=== PATIENT | female | born 1985 | race Caucasian/White ===

== ENCOUNTER 2022-06-16 13:41 | Outpatient (CLI) | payer OTHER ==
--- NOTE | 2022-06-18 09:14 | Ultrasound Report ---
PROCEDURE: OB Detailed Eval INDICATIONS: SUPERVISION OF OUTSIDE/PRIOR DATING DATA: Last menstrual period (LMP): 01/27/2022. LMP-based estimated date of delivery (GERALD): 11/03/2022. First dating scan (date and location): 06/16/2022. Dr. Magaña. Estimated date of delivery (GERALD) from first dating scan: 11/03/2022. The below data below was generated using the ultrasound GERALD of 11/03/2022 TECHNIQUE: Real-time scanning was performed of the fetus, with image documentation and biometric measurements. COMPARISON: None. FINDINGS: General: A single living intrauterine gestation is present. Presentation: Breech Placenta: Placental position is posterior, without convincing previa. Amniotic fluid index: 14 cm, normal for gestational age. Largest pocket 4.8 cm. heart rate: 150 beats per minute. Maternal cervical canal: 3.6 cm long; normal length is 2.5 cm or more. No funneling. biometrics: Biparietal diameter: 4.6 cm, 20 weeks 0 days Head circumference: 17.5 cm, 20 weeks 0 days Abdominal circumference: 16.7 cm, 21 weeks 5 days Femur length: 3.2 cm, 20 weeks 0 days Estimated gestational age from initial scan: 20 weeks 2 days Composite gestational age from present scan: 20 weeks 2 days Estimated weight and percentile: 381 g, 83rd percentile. Measurement variability in biometric dating: +/- 10 days from 12-20 weeks gestation, +/- 2 weeks from 20-30 weeks gestation, +/- 3 weeks at 30 weeks gestation or later. Anatomic survey: Neuro: Ventricles are normal at less than 10 mm. Cisterna magna is normal at 3-11 mm. Cerebellum i s normal in size and morphology. Nuchal skin fold: Normal at less than 6 mm between 14 and 20 weeks gestational age. Face: Not well seen. Spine: No evidence for spina bifida. Heart: Outflow tracts well seen. Four-chamber view is normal. Diaphragm: Diaphragm is intact. Stomach: Left-sided stomach is present. Kidneys: No hydronephrosis. Normal is less than 5 mm in 2nd trimester, less than 7 mm in 3rd trimester. Cord: 3 vessel cord has orthotopic insertion. Bladder: Normal in size. Extremities: All 4 extremities are visualized. IMPRESSION: 1. Perez living intrauterine at 20 weeks 2 days based on today's ultrasound. Fetus is i n the 83rd percentile for weight. 2. Normal placenta and amniotic fluid. 3. face and cardiac outflow tracts are not well seen. Otherwise normal anatomic survey. R ecommend follow-up OB ultrasound. Reviewed by: Isidro Singh MD on 06/18/2022 9:12 AM PST Approved by: Isidro Singh MD on 06/18/2022 9:12 AM PST Station ID: [id number]
== END 2022-06-16 13:42 | disposition home or self-care (01) ==
LOC: DI 13:41
PROVIDERS: ATTEND Nurse Practitioner Obstetrics & Gynecology
DX: Z34.02 Encounter for supervision of normal first pregnancy, second trimester (principal); Z36.89 Encounter for other specified antenatal screening

== ENCOUNTER 2022-06-25 10:41 | Outpatient (CLI) | payer OTHER ==
--- NOTE | 2022-06-25 11:59 | Ultrasound Report ---
PROCEDURE: OB F/U or Repeat INDICATIONS: SUPERVISION OF OUTSIDE/PRIOR DATING DATA: Last menstrual period (LMP): 01/27/2022. LMP-based estimated date of delivery (GERALD): 11/03/2022. First dating scan (date and location): 06/16/2021. Estimated date of delivery (GERALD) from first dating scan: 11/03/2022. TECHNIQUE: Real-time scanning was performed of the fetus, with image documentation COMPARISON: 06/16/2022 FINDINGS: General: A single living intrauterine gestation is present. Presentation: Variable Placenta: Placental position is posterior, without previa. Amniotic fluid index: 19.3 cm heart rate: 152 beats per minute. frontal facial view normal limits. However, no adequate profile view or nose/lips view could be obtained. LVOT views within normal limits. RVOT was still not well seen. IMPRESSION: Intrauterine with GERALD of 11/03/2022. RVOT view, profile, nose/lips view not wel l seen. LVOT view within normal limits. Reviewed by: Bishnu Sutton MD on 06/25/2022 11:57 AM PST Approved by: Bishnu Sutton MD on 06/25/2022 11:57 AM PST Station ID: [id number]
== END 2022-06-25 10:42 | disposition home or self-care (01) ==
LOC: DI 10:41
PROVIDERS: ATTEND Nurse Practitioner Obstetrics & Gynecology
DX: Z34.00 Encounter for supervision of normal first pregnancy, unspecified trimester (principal); Z36.89 Encounter for other specified antenatal screening

== ENCOUNTER 2022-08-12 11:04 | Outpatient (CLI) | payer OTHER ==
[2022-08-12 12:20] LABS: HCT - HEMATOCRIT 38.4 % (37.0-47.0); HGB - HEMOGLOBIN 12.6 g/dL (12.0-16.0); MEAN CORPUSCULAR HEMOGLOBIN 28.6 pg (27.0-31.0); MEAN CORPUSCULAR HGB CONC 32.8 g/dL (32.0-36.0); MEAN CORPUSCULAR VOLUME 87.1 fL (81.0-99.0); MEAN PLATELET VOLUME 9.3 fL (7.9-10.8); RED BLOOD COUNT 4.41 10^6/uL (4.20-5.40); RED CELL DISTRIBUTION WIDTH 12.8 % (12.0-15.0); WHITE BLOOD COUNT 8.5 x10^3/uL (4.8-10.8)
== END 2022-08-12 11:05 | disposition home or self-care (01) ==
LOC: LAB 11:04
PROVIDERS: ATTEND Nurse Practitioner Obstetrics & Gynecology
DX: Z36.9 Encounter for antenatal screening, unspecified (principal)
CPT/HCPCS: 36415; 82950; 85027

== ENCOUNTER 2022-09-14 13:06 | Outpatient (CLI) | payer OTHER ==
[2022-09-14 13:17] LABS: BASOPHILS % (AUTO) 0.1 %; EOSINOPHILS # (AUTO) 0.1 10^3/uL (0.0-0.7); EOSINOPHILS % (AUTO) 1.7 %; HCT - HEMATOCRIT 35.9 % (37.0-47.0); LYMPHOCYTES # (AUTO) 1.6 10^3/uL (1.5-3.5); LYMPHOCYTES % (AUTO) 19.8 %; MEAN CORPUSCULAR HEMOGLOBIN 28.4 pg (27.0-31.0); MEAN CORPUSCULAR HGB CONC 33.4 g/dL (32.0-36.0); MEAN CORPUSCULAR VOLUME 85.1 fL (81.0-99.0); MEAN PLATELET VOLUME 9.4 fL (7.9-10.8); MONOCYTES # (AUTO) 0.7 10^3/uL (0.0-1.0); MONOCYTES % (AUTO) 8.6 %; NEUTROPHILS # (AUTO) 5.7 10^3/uL (1.5-6.6); NEUTROPHILS % (AUTO) 69.1 %; PLT - PLATELET COUNT 269 10^3/uL (130-450); RED BLOOD COUNT 4.22 10^6/uL (4.20-5.40); RED CELL DISTRIBUTION WIDTH 12.9 % (12.0-15.0); WHITE BLOOD COUNT 8.3 x10^3/uL (4.8-10.8)
[2022-09-14 13:27] LABS: ALBUMIN 3.1 g/dL (3.2-5.5); ALBUMIN/GLOBULIN RATIO 0.9 (1.0-2.2); BILIRUBIN,TOTAL 0.3 mg/dL (0.2-1.0); CALCIUM 9.3 mg/dL (8.5-10.3); CREATININE 0.6 mg/dL (0.4-1.0); POTASSIUM 3.5 mmol/L (3.5-5.0); TOTAL PROTEIN 6.5 g/dL (6.7-8.2)
[2022-09-14 13:28] LABS: CREATININE,URINE 92.7 mg/dL; PROTEIN/CREATININE RATIO,URINE 0.2 (<=0.2)
== END 2022-09-14 13:07 | disposition home or self-care (01) ==
LOC: LAB 13:06
PROVIDERS: ATTEND Nurse Practitioner Obstetrics & Gynecology
DX: R03.0 Elevated blood-pressure reading, without diagnosis of hypertension (principal)
CPT/HCPCS: 36415; 80053; 82570; 84156; 85025

== ENCOUNTER 2022-09-28 11:36 | Outpatient (CLI) | payer OTHER ==
--- NOTE | 2022-09-28 13:54 | Ultrasound Report ---
PROCEDURE: OB F/U or Repeat INDICATIONS: UTERINE SIZE DATE DISCREPENCY OUTSIDE/PRIOR DATING DATA: Last menstrual period (LMP): 01/27/2022. LMP-based estimated date of delivery (GERALD): 11/03/2022 First dating scan (date and location): 06/16/2022. Estimated date of delivery (GERALD) from first dating scan: 11/03/2022 TECHNIQUE: Real-time scanning was performed of the fetus, with image documentation and biometric measurements. COMPARISON: 06/25/2022, 06/16/2022 FINDINGS: General: A single living intrauterine gestation is present. Presentation: Vertex Placenta: Placental position is posterior, without previa. Amniotic fluid index: 14.9 cm, 55th percentile for gestational age. heart rate: 137 beats per minute. Maternal cervical canal: 3.5 cm long; normal length is 2.5 cm or more. biometrics: Biparietal diameter: 8.76 cm, 35 weeks and 3 days Head circumference: 32.0 cm, 36 weeks and 1 day Abdominal circumference: 30.82 cm, 34 weeks and 5 days Femur length: 6.65 cm, 34 weeks and 2 days Estimated gestational age from initial scan: 34 weeks and 6 days Composite gestational age from present scan: 35 weeks and 1 day Estimated weight and percentile: 2523 g, 45th percentile IMPRESSION: Growth and fluid within normal limits. Intrauterine living with a working GERALD of 11/03/2022. EFW is at the 45th percentile. Previously noted anatomy not assessed on this study. Reviewed by: Bishnu Sutton MD on 09/28/2022 1:53 PM PDT Approved by: Bishnu Sutton MD on 09/28/2022 1:53 PM PDT Station ID: [id number]
== END 2022-09-28 11:37 | disposition home or self-care (01) ==
LOC: DI 11:36
PROVIDERS: ATTEND Nurse Practitioner Obstetrics & Gynecology
DX: O26.843 Uterine size-date discrepancy, third trimester (principal); Z3A.35 35 weeks gestation of pregnancy

== ENCOUNTER 2022-10-01 13:51 | Outpatient (CLI) | payer OTHER ==
[2022-10-01 14:02] LABS: BASOPHILS % (AUTO) 0.2 %; EOSINOPHILS # (AUTO) 0.1 10^3/uL (0.0-0.7); EOSINOPHILS % (AUTO) 1.5 %; HCT - HEMATOCRIT 36.4 % (37.0-47.0); HGB - HEMOGLOBIN 11.9 g/dL (12.0-16.0); LYMPHOCYTES # (AUTO) 1.7 10^3/uL (1.5-3.5); LYMPHOCYTES % (AUTO) 19.1 %; MEAN CORPUSCULAR HEMOGLOBIN 27.7 pg (27.0-31.0); MEAN CORPUSCULAR HGB CONC 32.7 g/dL (32.0-36.0); MEAN CORPUSCULAR VOLUME 84.7 fL (81.0-99.0); MEAN PLATELET VOLUME 9.6 fL (7.9-10.8); MONOCYTES # (AUTO) 0.7 10^3/uL (0.0-1.0); MONOCYTES % (AUTO) 7.3 %; NEUTROPHILS # (AUTO) 6.4 10^3/uL (1.5-6.6); NEUTROPHILS % (AUTO) 71.1 %; PLT - PLATELET COUNT 252 10^3/uL (130-450); RED CELL DISTRIBUTION WIDTH 13.2 % (12.0-15.0); WHITE BLOOD COUNT 9.1 x10^3/uL (4.8-10.8)
[2022-10-01 14:13] LABS: MICROALBUM/CREATININE RATIO,UR 14.3 ug/mg (<30.0); MICROALBUMIN,URINE 0.7 mg/dL (0-300.0)
== END 2022-10-01 13:52 | disposition home or self-care (01) ==
LOC: LAB 13:51
PROVIDERS: ATTEND Nurse Practitioner Obstetrics & Gynecology
DX: R03.0 Elevated blood-pressure reading, without diagnosis of hypertension (principal)
CPT/HCPCS: 36415; 82043; 82570; 85025

== ENCOUNTER 2022-10-05 10:30 | Outpatient (CLI) | payer OTHER ==
[2022-10-05 10:59] VITALS: BP 122/86
--- NOTE | 2022-10-05 17:51 | PROCEDURE REPORT ---
- HPI Diagnosis/Indication for NST: Gestational Hypertension Current EDU 11/02/22 Gestation 36 Weeks and 0 Days 1 Para 0 Vital Signs Temperature 36.7 C 10/05/22 10:43 Heart Rate 99 10/05/22 10:43 Respiratory Rate 18 10/05/22 10:43 Blood Pressure 125/96 H 10/05/22 10:43 Temperature 36.7 C 10/05/22 10:43 Heart Rate 99 10/05/22 10:43 Respiratory Rate 18 10/05/22 10:43 Blood Pressure 122/86 H 10/05/22 10:59 O2 Saturation If not protocol: Oxygen Flow, liters/minute - NST Procedure NST Procedure Start Date 10/05/22 Start Time 10:36 Stop Time 11:07 Vibroacoustic Stimulation Used No Patient States Movement Yes - Results and Plan Findings/Impression: NST reactive. FHR baseline 130s, moderate variability, + accels, no decels No contractions appreciated via tocometry. FINAL DIAGNOSIS: Gestational hypertension, third trimester Obesity complicating third trimester
== END 2022-10-05 11:20 | disposition home or self-care (01) ==
LOC: WFO 10:30 → FBP 10:31 → WFO 11:20
PROVIDERS: ATTEND Nurse Practitioner Obstetrics & Gynecology
DX: O13.3 Gestational [pregnancy-induced] hypertension without significant proteinuria, third trimester (principal); O99.213 Obesity complicating pregnancy, third trimester; Z3A.36 36 weeks gestation of pregnancy
CPT/HCPCS: 36415; 59025; 80053

== ENCOUNTER 2022-10-05 11:17 | Outpatient (CLI) | payer OTHER ==
[2022-10-05 11:53] LABS: ALBUMIN/GLOBULIN RATIO 0.9 (1.0-2.2); BILIRUBIN,TOTAL 0.5 mg/dL (0.2-1.0); CALCIUM 9.8 mg/dL (8.5-10.3); CREATININE 0.7 mg/dL (0.4-1.0); POTASSIUM 3.6 mmol/L (3.5-5.0); TOTAL PROTEIN 6.5 g/dL (6.7-8.2)
== END 2022-10-05 11:18 | disposition home or self-care (01) ==
LOC: LAB 11:17
PROVIDERS: ATTEND Nurse Practitioner Obstetrics & Gynecology
DX: R03.0 Elevated blood-pressure reading, without diagnosis of hypertension (principal)
CPT/HCPCS: 36415; 80053

== ENCOUNTER 2022-10-20 07:25 | Inpatient (IN) | payer OTHER ==
[2022-10-20] MEDS: SODIUM CHLORIDE FLUSH 0.9% 10 ML SYRINGE IVP SCH (08:05)
[2022-10-20] MEDS ORDERED: lidocaine 1% 20 ML MDV ID PRN (08:37)
[2022-10-20] MEDS ORDERED: METHYLERGONOVINE 0.2 MG/ML VIAL IM PRN (08:37)
[2022-10-20] MEDS ORDERED: OXYTOCIN/SODIUM CHLORIDE 500 ML IV PRN (08:37)
[2022-10-20] MEDS ORDERED: OXYTOCIN 10 UNIT/ML VIAL IM PRN (08:37)
[2022-10-20] MEDS ORDERED: ONDANSETRON 4 MG/2 ML VIAL IVP PRN (08:37)
[2022-10-20] MEDS ORDERED: miSOPROStoL 100 MCG TABLET BC SCH (08:37)
[2022-10-20] MEDS ORDERED: SODIUM CHLORIDE FLUSH 0.9% 10 ML SYRINGE IVP PRN (08:37)
[2022-10-20] MEDS ORDERED: TRANEXAMIC ACID IN NACL 1,000 MG/100 ML BAG IV PRN (08:37)
[2022-10-20] MEDS ORDERED: CARBOPROST TROMETHAMINE 250 MCG/ML AMP IM PRN (08:37)
[2022-10-20] MEDS ORDERED: miSOPROStoL 200 MCG TABLET BC PRN (08:37)
[2022-10-20 09:00] LABS: BASOPHILS % (AUTO) 0.2 %; EOSINOPHILS # (AUTO) 0.1 10^3/uL (0.0-0.7); EOSINOPHILS % (AUTO) 1.5 %; HCT - HEMATOCRIT 33.8 % (37.0-47.0); HGB - HEMOGLOBIN 11.1 g/dL (12.0-16.0); LYMPHOCYTES # (AUTO) 1.7 10^3/uL (1.5-3.5); LYMPHOCYTES % (AUTO) 18.8 %; MEAN CORPUSCULAR HEMOGLOBIN 27.4 pg (27.0-31.0); MEAN CORPUSCULAR HGB CONC 32.8 g/dL (32.0-36.0); MEAN CORPUSCULAR VOLUME 83.5 fL (81.0-99.0); MEAN PLATELET VOLUME 10.5 fL (7.9-10.8); MONOCYTES # (AUTO) 0.8 10^3/uL (0.0-1.0); MONOCYTES % (AUTO) 8.8 %; NEUTROPHILS # (AUTO) 6.2 10^3/uL (1.5-6.6); NEUTROPHILS % (AUTO) 70.1 %; PLT - PLATELET COUNT 265 10^3/uL (130-450); RED BLOOD COUNT 4.05 10^6/uL (4.20-5.40); RED CELL DISTRIBUTION WIDTH 13.6 % (12.0-15.0); WHITE BLOOD COUNT 8.8 x10^3/uL (4.8-10.8)
[2022-10-20] MEDS ORDERED: LABETALOL 100 MG TABLET PO SCH ×2 (09:00→18:00)
--- OUTSIDE RECORDS SUMMARY | 2022-10-20 09:04 | EXTERNAL MEDICAL SUMMARY RPT | Continuity of Care Document ---
Author Name Unknown Address [address] [place] [address] Phone Organization [facility] Address [address] [place] [address] Phone Care Team Providers Care Station Helper Name Role Phone Unavailable Unavailable Unavailable Loyda, Provider Unavailable Unavailable Medications date description facility 2022-08-12 00:00 thyroid (pork) [facility] 2022-09-14 00:00 thyroid (pork) [facility] 2022-10-01 00:00 thyroid (pork) [facility] 2022-10-05 00:00 thyroid (pork) [facility] 2022-08-12 00:00 bupropion hcl [facility] 2022-09-14 00:00 bupropion hcl [facility] 2022-10-01 00:00 bupropion hcl [facility] 2022-10-05 00:00 bupropion hcl [facility] 2022-08-12 00:00 thyroid (pork) [facility] 2022-09-14 00:00 thyroid (pork) [facility] 2022-10-01 00:00 thyroid (pork) [facility] 2022-10-05 00:00 thyroid (pork) [facility] 2022-08-12 00:00 thyroid (pork) [facility] 2022-09-14 00:00 thyroid (pork) [facility] 2022-10-01 00:00 thyroid (pork) [facility] 2022-10-05 00:00 thyroid (pork) [facility] 2022-08-12 00:00 thyroid (pork) [facility] 2022-09-14 00:00 thyroid (pork) [facility] 2022-10-01 00:00 thyroid (pork) [facility] 2022-10-05 00:00 thyroid (pork) [facility] 2022-08-12 00:00 bupropion hcl [facility] 2022-09-14 00:00 bupropion hcl [facility] 2022-10-01 00:00 bupropion hcl [facility] 2022-10-05 00:00 bupropion hcl [facility] 2022-08-12 00:00 bupropion hcl [facility] 2022-09-14 00:00 bupropion hcl [facility] 2022-10-01 00:00 bupropion hcl [facility] 2022-10-05 00:00 bupropion hcl [facility] 2022-08-12 00:00 bupropion hcl [facility] 2022-09-14 00:00 bupropion hcl [facility] 2022-10-01 00:00 bupropion hcl [facility] 2022-10-05 00:00 bupropion hcl [facility] Results/Labs test date author facility value unit interpretation Result panel 1 (unknown) (no date) (unknown) [facility] (no value) (units unknown) (unknown) Result panel 2 (unknown) (no date) (unknown) [facility] (no value) (units unknown) (unknown) Result panel 3 (unknown) (no date) (unknown) [facility] (no value) (units unknown) (unknown) Result panel 4 (unknown) (no date) (unknown) [facility] (no value) (units unknown) (unknown) Result panel 5 (unknown) (no date) (unknown) [facility] (no value) (units unknown) (unknown) Result panel 6 (unknown) (no date) (unknown) [facility] (no value) (units unknown) (unknown) Result panel 7 (unknown) (no date) (unknown) [facility] (no value) (units unknown) (unknown) Result panel 8 (unknown) (no date) (unknown) [facility] (no value) (units unknown) (unknown) Result panel 9 (unknown) (no date) (unknown) [facility] (no value) (units unknown) (unknown) Result panel 10 (unknown) (no date) (unknown) [facility] (no value) (units unknown) (unknown) Result panel 11 (unknown) (no date) (unknown) [facility] (no value) (units unknown) (unknown) Result panel 12 (unknown) (no date) (unknown) [facility] (no value) (units unknown) (unknown) Result panel 13 (unknown) (no date) (unknown) [facility] (no value) (units unknown) (unknown) Result panel 14 (unknown) (no date) (unknown) [facility] (no value) (units unknown) (unknown) Result panel 15 (unknown) (no date) (unknown) [facility] (no value) (units unknown) (unknown) Result panel 16 (unknown) (no date) (unknown) [facility] (no value) (units unknown) (unknown) Result panel 17 (unknown) (no date) (unknown) [facility] (no value) (units unknown) (unknown) Result panel 18 (unknown) (no date) (unknown) [facility] (no value) (units unknown) (unknown) Result panel 19 (unknown) (no date) (unknown) [facility] (no value) (units unknown) (unknown) Result panel 20 (unknown) (no date) (unknown) [facility] (no value) (units unknown) (unknown) Result panel 21 (unknown) (no date) (unknown) [facility] (no value) (units unknown) (unknown) Result panel 22 (unknown) (no date) (unknown) [facility] (no value) (units unknown) (unknown) Result panel 23 (unknown) (no date) (unknown) [facility] (no value) (units unknown) (unknown) Result panel 24 (unknown) (no date) (unknown) [facility] (no value) (units unknown) (unknown) Result panel 25 (unknown) (no date) (unknown) [facility] (no value) (units unknown) (unknown) Result panel 26 (unknown) (no date) (unknown) [facility] (no value) (units unknown) (unknown) Result panel 27 (unknown) (no date) (unknown) [facility] (no value) (units unknown) (unknown) Result panel 28 (unknown) (no date) (unknown) [facility] (no value) (units unknown) (unknown) Result panel 29 (unknown) (no date) (unknown) [facility] (no value) (units unknown) (unknown) Result panel 30 (unknown) (no date) (unknown) [facility] (no value) (units unknown) (unknown) Result panel 31 (unknown) (no date) (unknown) [facility] (no value) (units unknown) (unknown) Result panel 32 (unknown) (no date) (unknown) [facility] (no value) (units unknown) (unknown) Result panel 33 (unknown) (no date) (unknown) [facility] (no value) (units unknown) (unknown) Result panel 34 (unknown) (no date) (unknown) [facility] (no value) (units unknown) (unknown) Result panel 35 (unknown) (no date) (unknown) [facility] (no value) (units unknown) (unknown) Result panel 36 (unknown) (no date) (unknown) [facility] (no value) (units unknown) (unknown) Result panel 37 (unknown) (no date) (unknown) [facility] (no value) (units unknown) (unknown) Result panel 38 (unknown) (no date) (unknown) [facility] (no value) (units unknown) (unknown) Result panel 39 (unknown) (no date) (unknown) [facility] (no value) (units unknown) (unknown) Result panel 40 (unknown) (no date) (unknown) [facility] (no value) (units unknown) (unknown) Result panel 41 (unknown) (no date) (unknown) [facility] (no value) (units unknown) (unknown) Result panel 42 (unknown) (no date) (unknown) [facility] (no value) (units unknown) (unknown) Result panel 43 (unknown) (no date) (unknown) [facility] (no value) (units unknown) (unknown) Result panel 44 (unknown) (no date) (unknown) [facility] (no value) (units unknown) (unknown) Result panel 45 (unknown) (no date) (unknown) [facility] (no value) (units unknown) (unknown) Result panel 46 (unknown) (no date) (unknown) [facility] (no value) (units unknown) (unknown) Result panel 47 (unknown) (no date) (unknown) [facility] (no value) (units unknown) (unknown) Result panel 48 (unknown) (no date) (unknown) [facility] (no value) (units unknown) (unknown) Result panel 49 (unknown) (no date) (unknown) [facility] (no value) (units unknown) (unknown) Result panel 50 (unknown) (no date) (unknown) [facility] (no value) (units unknown) (unknown) Result panel 51 (unknown) (no date) (unknown) [facility] (no value) (units unknown) (unknown) Result panel 52 (unknown) (no date) (unknown) [facility] (no value) (units unknown) (unknown) Result panel 53 (unknown) (no date) (unknown) [facility] (no value) (units unknown) (unknown) Result panel 54 (unknown) (no date) (unknown) [facility] (no value) (units unknown) (unknown) Result panel 55 (unknown) (no date) (unknown) [facility] (no value) (units unknown) (unknown) Result panel 56 (unknown) (no date) (unknown) [facility] (no value) (units unknown) (unknown) Result panel 57 (unknown) (no date) (unknown) [facility] (no value) (units unknown) (unknown) Result panel 58 (unknown) (no date) (unknown) [facility] (no value) (units unknown) (unknown) Result panel 59 (unknown) (no date) (unknown) [facility] (no value) (units unknown) (unknown) Result panel 60 (unknown) (no date) (unknown) [facility] (no value) (units unknown) (unknown) Result panel 61 (unknown) (no date) (unknown) [facility] (no value) (units unknown) (unknown) Result panel 62 (unknown) (no date) (unknown) [facility] (no value) (units unknown) (unknown) Result panel 63 (unknown) (no date) (unknown) [facility] (no value) (units unknown) (unknown) Result panel 64 (unknown) (no date) (unknown) [facility] (no value) (units unknown) (unknown) Result panel 65 (unknown) (no date) (unknown) [facility] (no value) (units unknown) (unknown) Result panel 66 (unknown) (no date) (unknown) [facility] (no value) (units unknown) (unknown) Result panel 67 (unknown) (no date) (unknown) [facility] (no value) (units unknown) (unknown) Result panel 68 (unknown) (no date) (unknown) [facility] (no value) (units unknown) (unknown) Result panel 69 (unknown) (no date) (unknown) [facility] (no value) (units unknown) (unknown) Result panel 70 (unknown) (no date) (unknown) [facility] (no value) (units unknown) (unknown) Result panel 71 (unknown) (no date) (unknown) [facility] (no value) (units unknown) (unknown) Result panel 72 (unknown) (no date) (unknown) [facility] (no value) (units unknown) (unknown) Result panel 73 (unknown) (no date) (unknown) [facility] (no value) (units unknown) (unknown) Result panel 74 (unknown) (no date) (unknown) [facility] (no value) (units unknown) (unknown) Result panel 75 (unknown) (no date) (unknown) [facility] (no value) (units unknown) (unknown) Result panel 76 (unknown) (no date) (unknown) [facility] (no value) (units unknown) (unknown) Result panel 77 (unknown) (no date) (unknown) [facility] (no value) (units unknown) (unknown) Result panel 78 (unknown) (no date) (unknown) [facility] (no value) (units unknown) (unknown) Result panel 79 (unknown) (no date) (unknown) [facility] (no value) (units unknown) (unknown) Result panel 80 (unknown) (no date) (unknown) [facility] (no value) (units unknown) (unknown) Result panel 81 (unknown) (no date) (unknown) [facility] (no value) (units unknown) (unknown) Result panel 82 (unknown) (no date) (unknown) [facility] (no value) (units unknown) (unknown) Result panel 83 (unknown) (no date) (unknown) [facility] (no value) (units unknown) (unknown) Result panel 84 (unknown) (no date) (unknown) [facility] (no value) (units unknown) (unknown) Result panel 85 (unknown) (no date) (unknown) [facility] (no value) (units unknown) (unknown) Result panel 86 (unknown) (no date) (unknown) [facility] (no value) (units unknown) (unknown) Result panel 87 (unknown) (no date) (unknown) [facility] (no value) (units unknown) (unknown) Result panel 88 (unknown) (no date) (unknown) [facility] (no value) (units unknown) (unknown) Result panel 89 (unknown) (no date) (unknown) [facility] (no value) (units unknown) (unknown) Result panel 90 (unknown) (no date) (unknown) [facility] (no value) (units unknown) (unknown) Result panel 91 (unknown) (no date) (unknown) [facility] (no value) (units unknown) (unknown) Result panel 92 (unknown) (no date) (unknown) [facility] (no value) (units unknown) (unknown) Result panel 93 (unknown) (no date) (unknown) [facility] (no value) (units unknown) (unknown) Result panel 94 (unknown) (no date) (unknown) [facility] (no value) (units unknown) (unknown) Result panel 95 (unknown) (no date) (unknown) [facility] (no value) (units unknown) (unknown) Result panel 96 (unknown) (no date) (unknown) [facility] (no value) (units unknown) (unknown) Result panel 97 (unknown) (no date) (unknown) [facility] (no value) (units unknown) (unknown) Result panel 98 (unknown) (no date) (unknown) [facility] (no value) (units unknown) (unknown) Result panel 99 (unknown) (no date) (unknown) [facility] (no value) (units unknown) (unknown) Result panel 100 (unknown) (no date) (unknown) [facility] (no value) (units unknown) (unknown) Result panel 101 (unknown) (no date) (unknown) [facility] (no value) (units unknown) (unknown) Result panel 102 (unknown) (no date) (unknown) [facility] (no value) (units unknown) (unknown) Result panel 103 (unknown) (no date) (unknown) [facility] (no value) (units unknown) (unknown) Result panel 104 (unknown) (no date) (unknown) [facility] (no value) (units unknown) (unknown) Result panel 105 (unknown) (no date) (unknown) [facility] (no value) (units unknown) (unknown) Result panel 106 (unknown) (no date) (unknown) [facility] (no value) (units unknown) (unknown) Result panel 107 (unknown) (no date) (unknown) [facility] (no value) (units unknown) (unknown) Result panel 108 (unknown) (no date) (unknown) [facility] (no value) (units unknown) (unknown) Result panel 109 (unknown) (no date) (unknown) [facility] (no value) (units unknown) (unknown) Result panel 110 (unknown) (no date) (unknown) [facility] (no value) (units unknown) (unknown) Result panel 111 (unknown) (no date) (unknown) [facility] (no value) (units unknown) (unknown) Result panel 112 (unknown) (no date) (unknown) [facility] (no value) (units unknown) (unknown) Result panel 113 (unknown) (no date) (unknown) [facility] (no value) (units unknown) (unknown) Result panel 114 (unknown) (no date) (unknown) [facility] (no value) (units unknown) (unknown) Result panel 115 (unknown) (no date) (unknown) [facility] (no value) (units unknown) (unknown) Result panel 116 (unknown) (no date) (unknown) [facility] (no value) (units unknown) (unknown) Result panel 117 (unknown) (no date) (unknown) [facility] (no value) (units unknown) (unknown) Result panel 118 (unknown) (no date) (unknown) [facility] (no value) (units unknown) (unknown) Result panel 119 (unknown) (no date) (unknown) [facility] (no value) (units unknown) (unknown) Result panel 120 (unknown) (no date) (unknown) [facility] (no value) (units unknown) (unknown) Result panel 121 (unknown) (no date) (unknown) [facility] (no value) (units unknown) (unknown) Result panel 122 (unknown) (no date) (unknown) [facility] (no value) (units unknown) (unknown) Result panel 123 (unknown) (no date) (unknown) [facility] (no value) (units unknown) (unknown) Result panel 124 (unknown) (no date) (unknown) [facility] (no value) (units unknown) (unknown) Result panel 125 (unknown) (no date) (unknown) [facility] (no value) (units unknown) (unknown) Result panel 126 (unknown) (no date) (unknown) [facility] (no value) (units unknown) (unknown) Result panel 127 (unknown) (no date) (unknown) [facility] (no value) (units unknown) (unknown) Result panel 128 (unknown) (no date) (unknown) [facility] (no value) (units unknown) (unknown) Result panel 129 (unknown) (no date) (unknown) [facility] (no value) (units unknown) (unknown) Result panel 130 (unknown) (no date) (unknown) [facility] (no value) (units unknown) (unknown) Result panel 131 (unknown) (no date) (unknown) [facility] (no value) (units unknown) (unknown) Result panel 132 (unknown) (no date) (unknown) [facility] (no value) (units unknown) (unknown) Result panel 133 (unknown) (no date) (unknown) [facility] (no value) (units unknown) (unknown) Result panel 134 (unknown) (no date) (unknown) [facility] (no value) (units unknown) (unknown) Result panel 135 (unknown) (no date) (unknown) [facility] (no value) (units unknown) (unknown) Result panel 136 (unknown) (no date) (unknown) [facility] (no value) (units unknown) (unknown) Result panel 137 (unknown) (no date) (unknown) [facility] (no value) (units unknown) (unknown) Result panel 138 (unknown) (no date) (unknown) [facility] (no value) (units unknown) (unknown) Result panel 139 (unknown) (no date) (unknown) [facility] (no value) (units unknown) (unknown) Result panel 140 (unknown) (no date) (unknown) [facility] (no value) (units unknown) (unknown) Result panel 141 (unknown) (no date) (unknown) [facility] (no value) (units unknown) (unknown) Result panel 142 (unknown) (no date) (unknown) [facility] (no value) (units unknown) (unknown) Result panel 143 (unknown) (no date) (unknown) [facility] (no value) (units unknown) (unknown) Result panel 144 (unknown) (no date) (unknown) [facility] (no value) (units unknown) (unknown) Result panel 145 (unknown) (no date) (unknown) [facility] (no value) (units unknown) (unknown) Result panel 146 (unknown) (no date) (unknown) [facility] (no value) (units unknown) (unknown) Result panel 147 (unknown) (no date) (unknown) [facility] (no value) (units unknown) (unknown) Result panel 148 (unknown) (no date) (unknown) [facility] [facility] (no value) (units unknown) (unknown) Result panel 149 (unknown) (no date) (unknown) [facility] value) (units unknown) (unknown) Result panel 150 (unknown) (no date) (unknown) [facility]no value) (units unknown) (unknown) Result panel 151 (unknown) (no date) (unknown) [facility] value) (units unknown) (unknown) Result panel 152 (unknown) (no date) (unknown) [facility] value) (units unknown) (unknown) Result panel 153 (unknown) (no date) (unknown) [facility] value) (units unknown) (unknown) Result panel 154 (unknown) (no date) (unknown) [facility] value) (units unknown) (unknown) Result panel 155 (unknown) (no date) (unknown) [facility] value) (units unknown) (unknown) Result panel 156 (unknown) (no date) (unknown) [facility] value) (units unknown) (unknown) Result panel 157 (unknown) (no date) (unknown) [facility] value) (units unknown) (unknown) Result panel 158 (unknown) (no date) (unknown) [facility] value) (units unknown) (unknown) Result panel 159 (unknown) (no date) (unknown) [facility] value) (units unknown) (unknown) Result panel 160 (unknown) (no date) (unknown) [facility] value) (units unknown) (unknown) Result panel 161 (unknown) (no date) (unknown) [facility] value) (units unknown) (unknown) Result panel 162 (unknown) (no date) (unknown) [facility] value) (units unknown) (unknown) Result panel 163 (unknown) (no date) (unknown) [facility] value) (units unknown) (unknown) Result panel 164 (unknown) (no date) (unknown) [facility] value) (units unknown) (unknown) Result panel 165 (unknown) (no date) (unknown) [facility] value) (units unknown) (unknown) Result panel 166 (unknown) (no date) (unknown) [facility] value) (units unknown) (unknown) Result panel 167 (unknown) (no date) (unknown) [facility] value) (units unknown) (unknown) Result panel 168 (unknown) (no date) (unknown) [facility] value) (units unknown) (unknown) Result panel 169 (unknown) (no date) (unknown) [facility] value) (units unknown) (unknown) Result panel 170 (unknown) (no date) (unknown) [facility] value) (units unknown) (unknown) Result panel 171 (unknown) (no date) (unknown) [facility] value) (units unknown) (unknown) Result panel 172 (unknown) (no date) (unknown) [facility] value) (units unknown) (unknown) Result panel 173 (unknown) (no date) (unknown) [facility] value) (units unknown) (unknown) Result panel 174 (unknown) (no date) (unknown) [facility] value) (units unknown) (unknown) Result panel 175 (unknown) (no date) (unknown) [facility] value) (units unknown) (unknown) Result panel 176 (unknown) (no date) (unknown) [facility] value) (units unknown) (unknown) Result panel 177 (unknown) (no date) (unknown) [facility] value) (units unknown) (unknown) Result panel 178 (unknown) (no date) (unknown) [facility] value) (units unknown) (unknown) Result panel 179 (unknown) (no date) (unknown) [facility]no value) (units unknown) (unknown) Result panel 180 (unknown) (no date) (unknown) [facility] (no value) (units unknown) (unknown) Result panel 181 (unknown) (no date) (unknown) [facility] value) (units unknown) (unknown) Result panel 182 (unknown) (no date) (unknown) [facility]no value) (units unknown) (unknown) Result panel 183 (unknown) (no date) (unknown) [facility] value) (units unknown) (unknown) Result panel 184 (unknown) (no date) (unknown) [facility]no value) (units unknown) (unknown) Result panel 185 (unknown) (no date) (unknown) [facility]no value) (units unknown) (unknown) Result panel 186 (unknown) (no date) (unknown) [facility]no value) (units unknown) (unknown) Result panel 187 (unknown) (no date) (unknown) [facility]no value) (units unknown) (unknown) Result panel 188 (unknown) (no date) (unknown) [facility]no value) (units unknown) (unknown) Result panel 189 (unknown) (no date) (unknown) [facility]no value) (units unknown) (unknown) Result panel 190 (unknown) (no date) (unknown) [facility] value) (units unknown) (unknown) Result panel 191 (unknown) (no date) (unknown) [facility]no value) (units unknown) (unknown) Result panel 192 (unknown) (no date) (unknown) [facility]no value) (units unknown) (unknown) Result panel 193 (unknown) (no date) (unknown) [facility]no value) (units unknown) (unknown) Result panel 194 (unknown) (no date) (unknown) [facility]no value) (units unknown) (unknown) Result panel 195 (unknown) (no date) (unknown) [facility]no value) (units unknown) (unknown) Result panel 196 (unknown) (no date) (unknown) [facility]no value) (units unknown) (unknown) Result panel 197 (unknown) (no date) (unknown) [facility]no value) (units unknown) (unknown) Result panel 198 (unknown) (no date) (unknown) [facility]no value) (units unknown) (unknown) Result panel 199 (unknown) (no date) (unknown) [facility]no value) (units unknown) (unknown) Result panel 200 (unknown) (no date) (unknown) [facility]no value) (units unknown) (unknown) Result panel 201 (unknown) (no date) (unknown) [facility]no value) (units unknown) (unknown) Result panel 202 (unknown) (no date) (unknown) [facility]no value) (units unknown) (unknown) Result panel 203 (unknown) (no date) (unknown) [facility]no value) (units unknown) (unknown) Result panel 204 (unknown) (no date) (unknown) [facility]no value) (units unknown) (unknown) Result panel 205 (unknown) (no date) (unknown) [facility]no value) (units unknown) (unknown) Result panel 206 (unknown) (no date) (unknown) [facility]no value) (units unknown) (unknown) Result panel 207 (unknown) (no date) (unknown) [facility]no value) (units unknown) (unknown) Result panel 208 (unknown) (no date) (unknown) [facility]no value) (units unknown) (unknown) Result panel 209 (unknown) (no date) (unknown) [facility]no value) (units unknown) (unknown) Result panel 210 (unknown) (no date) (unknown) [facility] (no value) (units unknown) (unknown) Result panel 211 (unknown) (no date) (unknown) [facility]no value) (units unknown) (unknown) Result panel 212 (unknown) (no date) (unknown) [facility]no value) (units unknown) (unknown) Result panel 213 (unknown) (no date) (unknown) [facility]no value) (units unknown) (unknown) Result panel 214 (unknown) (no date) (unknown) [facility] (no value) (units unknown) (unknown) Result panel 215 (unknown) (no date) (unknown) [facility]no value) (units unknown) (unknown) Result panel 216 (unknown) (no date) (unknown) [facility]no value) (units unknown) (unknown) Result panel 217 (unknown) (no date) (unknown) [facility]no value) (units unknown) (unknown) Result panel 218 (unknown) (no date) (unknown) [facility] (no value) (units unknown) (unknown) Result panel 219 (unknown) (no date) (unknown) [facility]no value) (units unknown) (unknown) Result panel 220 (unknown) (no date) (unknown) [facility] (no value) (units unknown) (unknown) Result panel 221 (unknown) (no date) (unknown) [facility]no value) (units unknown) (unknown) Result panel 222 (unknown) (no date) (unknown) [facility]no value) (units unknown) (unknown) Result panel 223 (unknown) (no date) (unknown) [facility]no value) (units unknown) (unknown) Result panel 224 (unknown) (no date) (unknown) [facility] (no value) (units unknown) (unknown) Result panel 225 (unknown) (no date) (unknown) [facility] (no value) (units unknown) (unknown) Result panel 226 (unknown) (no date) (unknown) [facility]no value) (units unknown) (unknown) Result panel 227 (unknown) (no date) (unknown) [facility] (no value) (units unknown) (unknown) Result panel 228 (unknown) (no date) (unknown) [facility] (no value) (units unknown) (unknown) Result panel 229 (unknown) (no date) (unknown) [facility] (no value) (units unknown) (unknown) Result panel 230 (unknown) (no date) (unknown) [facility] (no value) (units unknown) (unknown) Result panel 231 (unknown) (no date) (unknown) [facility] (no value) (units unknown) (unknown) Result panel 232 (unknown) (no date) (unknown) [facility] (no value) (units unknown) (unknown) Result panel 233 (unknown) (no date) (unknown) [facility] (no value) (units unknown) (unknown) Result panel 234 (unknown) (no date) (unknown) [facility] (no value) (units unknown) (unknown) Result panel 235 (unknown) (no date) (unknown) [facility] (no value) (units unknown) (unknown) Result panel 236 (unknown) (no date) (unknown) [facility] (no value) (units unknown) (unknown) Result panel 237 (unknown) (no date) (unknown) [facility] (no value) (units unknown) (unknown) Result panel 238 (unknown) (no date) (unknown) [facility] (no value) (units unknown) (unknown) Result panel 239 (unknown) (no date) (unknown) [facility] (no value) (units unknown) (unknown) Result panel 240 (unknown) (no date) (unknown) [facility] (no value) (units unknown) (unknown) Result panel 241 (unknown) (no date) (unknown) [facility] (no value) (units unknown) (unknown) Result panel 242 (unknown) (no date) (unknown) [facility] (no value) (units unknown) (unknown) Result panel 243 (unknown) (no date) (unknown) [facility] (no value) (units unknown) (unknown) Result panel 244 (unknown) (no date) (unknown) [facility] (no value) (units unknown) (unknown) Result panel 245 (unknown) (no date) (unknown) [facility] (no value) (units unknown) (unknown) Result panel 246 (unknown) (no date) (unknown) [facility] (no value) (units unknown) (unknown) Result panel 247 (unknown) (no date) (unknown) [facility] (no value) (units unknown) (unknown) Result panel 248 (unknown) (no date) (unknown) [facility] (no value) (units unknown) (unknown) Result panel 249 (unknown) (no date) (unknown) [facility] (no value) (units unknown) (unknown) Result panel 250 (unknown) (no date) (unknown) [facility] (no value) (units unknown) (unknown) Result panel 251 (unknown) (no date) (unknown) [facility] (no value) (units unknown) (unknown) Result panel 252 (unknown) (no date) (unknown) [facility] (no value) (units unknown) (unknown) Result panel 253 (unknown) (no date) (unknown) [facility] (no value) (units unknown) (unknown) Result panel 254 (unknown) (no date) (unknown) [facility] (no value) (units unknown) (unknown) Result panel 255 (unknown) (no date) (unknown) [facility] (no value) (units unknown) (unknown) Result panel 256 (unknown) (no date) (unknown) [facility] (no value) (units unknown) (unknown) Result panel 257 (unknown) (no date) (unknown) [facility] (no value) (units unknown) (unknown) Result panel 258 (unknown) (no date) (unknown) [facility] (no value) (units unknown) (unknown) Result panel 259 (unknown) (no date) (unknown) [facility] (no value) (units unknown) (unknown) Result panel 260 (unknown) (no date) (unknown) [facility] (no value) (units unknown) (unknown) Result panel 261 (unknown) (no date) (unknown) [facility] (no value) (units unknown) (unknown) Result panel 262 (unknown) (no date) (unknown) [facility] (no value) (units unknown) (unknown) Result panel 263 (unknown) (no date) (unknown) [facility]no value) (units unknown) (unknown) Result panel 264 (unknown) (no date) (unknown) [facility] (no value) (units unknown) (unknown) Result panel 265 (unknown) (no date) (unknown) [facility]no value) (units unknown) (unknown) Result panel 266 (unknown) (no date) (unknown) [facility]no value) (units unknown) (unknown) Result panel 267 (unknown) (no date) (unknown) [facility]no value) (units unknown) (unknown) Result panel 268 (unknown) (no date) (unknown) [facility]no value) (units unknown) (unknown) Result panel 269 (unknown) (no date) (unknown) [facility]no value) (units unknown) (unknown) Result panel 270 (unknown) (no date) (unknown) [facility]no value) (units unknown) (unknown) Result panel 271 (unknown) (no date) (unknown) [facility] (no value) (units unknown) (unknown) Result panel 272 (unknown) (no date) (unknown) [facility] (no value) (units unknown) (unknown) Result panel 273 (unknown) (no date) (unknown) [facility] (no value) (units unknown) (unknown) Result panel 274 (unknown) (no date) (unknown) [facility] (no value) (units unknown) (unknown) Result panel 275 (unknown) (no date) (unknown) [facility] (no value) (units unknown) (unknown) Result panel 276 (unknown) (no date) (unknown) [facility] (no value) (units unknown) (unknown) Result panel 277 (unknown) (no date) (unknown) [facility] (no value) (units unknown) (unknown) Result panel 278 (unknown) (no date) (unknown) [facility] (no value) (units unknown) (unknown) Result panel 279 (unknown) (no date) (unknown) [facility] (no value) (units unknown) (unknown) Result panel 280 (unknown) (no date) (unknown) [facility] (no value) (units unknown) (unknown) Result panel 281 (unknown) (no date) (unknown) [facility] (no value) (units unknown) (unknown) Result panel 282 (unknown) (no date) (unknown) [facility] (no value) (units unknown) (unknown) Result panel 283 (unknown) (no date) (unknown) [facility] (no value) (units unknown) (unknown) Result panel 284 (unknown) (no date) (unknown) [facility] (no value) (units unknown) (unknown) Result panel 285 (unknown) (no date) (unknown) [facility] (no value) (units unknown) (unknown) Result panel 286 (unknown) (no date) (unknown) [facility] (no value) (units unknown) (unknown) Result panel 287 (unknown) (no date) (unknown) [facility] (no value) (units unknown) (unknown) Result panel 288 (unknown) (no date) (unknown) [facility] (no value) (units unknown) (unknown) Result panel 289 (unknown) (no date) (unknown) [facility] (no value) (units unknown) (unknown) Result panel 290 (unknown) (no date) (unknown) [facility] (no value) (units unknown) (unknown) Result panel 291 (unknown) (no date) (unknown) [facility] (no value) (units unknown) (unknown) Result panel 292 (unknown) (no date) (unknown) [facility] (no value) (units unknown) (unknown) Result panel 293 (unknown) (no date) (unknown) [facility] (no value) (units unknown) (unknown) Result panel 294 (unknown) (no date) (unknown) [facility] (no value) (units unknown) (unknown) Result panel 295 (unknown) (no date) (unknown) [facility] (no value) (units unknown) (unknown) Result panel 296 (unknown) (no date) (unknown) [facility] (no value) (units unknown) (unknown) Result panel 297 (unknown) (no date) (unknown) [facility] (no value) (units unknown) (unknown) Result panel 298 (unknown) (no date) (unknown) [facility]no value) (units unknown) (unknown) Result panel 299 (unknown) (no date) (unknown) [facility]no value) (units unknown) (unknown) Result panel 300 (unknown) (no date) (unknown) [facility] (no value) (units unknown) (unknown) Result panel 301 (unknown) (no date) (unknown) [facility]no value) (units unknown) (unknown) Result panel 302 (unknown) (no date) (unknown) [facility] (no value) (units unknown) (unknown) Result panel 303 (unknown) (no date) (unknown) [facility] (no value) (units unknown) (unknown) Result panel 304 (unknown) (no date) (unknown) [facility] (no value) (units unknown) (unknown) Result panel 305 (unknown) (no date) (unknown) [facility] (no value) (units unknown) (unknown) Result panel 306 (unknown) (no date) (unknown) [facility] (no value) (units unknown) (unknown) Result panel 307 (unknown) (no date) (unknown) [facility] (no value) (units unknown) (unknown) Result panel 308 (unknown) (no date) (unknown) [facility]no value) (units unknown) (unknown) Result panel 309 (unknown) (no date) (unknown) [facility] (no value) (units unknown) (unknown) Result panel 310 (unknown) (no date) (unknown) [facility] (no value) (units unknown) (unknown) Result panel 311 (unknown) (no date) (unknown) [facility] (no value) (units unknown) (unknown) Result panel 312 (unknown) (no date) (unknown) [facility] (no value) (units unknown) (unknown) Result panel 313 (unknown) (no date) (unknown) [facility] (no value) (units unknown) (unknown) Result panel 314 (unknown) (no date) (unknown) [facility] (no value) (units unknown) (unknown) Result panel 315 (unknown) (no date) (unknown) [facility] (no value) (units unknown) (unknown) Result panel 316 (unknown) (no date) (unknown) [facility] (no value) (units unknown) (unknown) Result panel 317 (unknown) (no date) (unknown) [facility] (no value) (units unknown) (unknown) Result panel 318 (unknown) (no date) (unknown) [facility]no value) (units unknown) (unknown) Result panel 319 (unknown) (no date) (unknown) [facility] [place] (no value) (units unknown) (unknown) Result panel 320 (unknown) (no date) (unknown) [facility] [place] (no value) (units unknown) (unknown) Result panel 321 (unknown) (no date) (unknown) [facility] [place] (no value) (units unknown) (unknown) Result panel 322 (unknown) (no date) (unknown) [facility] [place] (no value) (units unknown) (unknown) Result panel 323 (unknown) (no date) (unknown) [facility] [place] (no value) (units unknown) (unknown) Result panel 324 (unknown) (no date) (unknown) [facility] [place] (no value) (units unknown) (unknown) Result panel 325 (unknown) (no date) (unknown) [facility] [place] (no value) (units unknown) (unknown) Result panel 326 (unknown) (no date) (unknown) [facility] [place] (no value) (units unknown) (unknown) Result panel 327 (unknown) (no date) (unknown) [facility] [place] (no value) (units unknown) (unknown) Result panel 328 (unknown) (no date) (unknown) [facility] [place] (no value) (units unknown) (unknown) Result panel 329 (unknown) (no date) (unknown) [facility] [place] (no value) (units unknown) (unknown) Result panel 330 (unknown) (no date) (unknown) [facility] [place] (no value) (units unknown) (unknown) Result panel 331 (unknown) (no date) (unknown) [facility] [place] (no value) (units unknown) (unknown) Result panel 332 (unknown) (no date) (unknown) [facility] [place] (no value) (units unknown) (unknown) Result panel 333 (unknown) (no date) (unknown) [facility] [place] (no value) (units unknown) (unknown) Result panel 334 (unknown) (no date) (unknown) [facility] [place] (no value) (units unknown) (unknown) Result panel 335 (unknown) (no date) (unknown) [facility] [place] (no value) (units unknown) (unknown) Result panel 336 (unknown) (no date) (unknown) [facility] [place] (no value) (units unknown) (unknown) Result panel 337 (unknown) (no date) (unknown) [facility] [place] (no value) (units unknown) (unknown) Result panel 338 (unknown) (no date) (unknown) [facility] [place] (no value) (units unknown) (unknown) Result panel 339 (unknown) (no date) (unknown) [facility] [place] (no value) (units unknown) (unknown) Result panel 340 (unknown) (no date) (unknown) [facility] [place] (no value) (units unknown) (unknown) Result panel 341 (unknown) (no date) (unknown) [facility] [place] (no value) (units unknown) (unknown) Result panel 342 (unknown) (no date) (unknown) [facility] [place] (no value) (units unknown) (unknown) Result panel 343 (unknown) (no date) (unknown) [facility] [place] (no value) (units unknown) (unknown) Result panel 344 (unknown) (no date) (unknown) [facility] [place] (no value) (units unknown) (unknown) Result panel 345 (unknown) (no date) (unknown) [facility] [place] (no value) (units unknown) (unknown) Social History date description facility 2022-08-12 00:00 Unknown if ever smoked [facility] [place] 2022-09-14 00:00 Unknown if ever smoked [facility] [place] 2022-10-01 00:00 Unknown if ever smoked [facility] [place] 2022-10-05 00:00 Unknown if ever smoked [facility] [place]
[2022-10-20 09:07] LABS: ALBUMIN 2.7 g/dL (3.2-5.5); ALBUMIN/GLOBULIN RATIO 0.7 (1.0-2.2); BILIRUBIN,TOTAL 0.4 mg/dL (0.2-1.0); CALCIUM 9.4 mg/dL (8.5-10.3); CREATININE 0.7 mg/dL (0.4-1.0); POTASSIUM 3.2 mmol/L (3.5-5.0); TOTAL PROTEIN 6.4 g/dL (6.7-8.2)
[2022-10-20] MEDS ORDERED: LACTATED RINGERS 1,000 ML ONE (09:14)
[2022-10-20] MEDS: buPROPion XL 150 MG TABLET PO SCH (09:37)
[2022-10-20 09:59] LABS: CREATININE,URINE 48.6 mg/dL; PROTEIN/CREATININE RATIO,URINE 0.1 (<=0.2)
--- NOTE | 2022-10-20 10:10 | HISTORY & PHYSICAL EXAMINATION ---
Admit History - Visit Reason Visit Reason: Other - : 1 Parity: 0 Premature: 0 Ectopic: 0 : 0 Care: positive: [facility] Risk/History: positive: None Complications This : positive: induced HTN Smoking Status: Never smoker - Mother's Labs Mother's Blood Type: positive: B Mother's RH: positive: Negative GBS: positive: Group B Step Negative Rubella Status: positive: Immune Meds/Allgy - Allergies Allergies/Adverse Reactions: Allergies Allergy/AdvReac Type Severity Reaction Status Date / Time No Known Drug Allergies Allergy Verified 10/20/22 08:33 Review of Systems - Constitutional Constitutional: denies: Fatigue, Fever, Chills, Malaise - Eyes Eyes: denies: Blurred vision, Spots in vision, Dipolpia - Cardiovascular Cariovascular: denies: Irregular heart rate, Palpitations, Chest pain, Edema - Respiratory Respiratory: denies: Cough, Wheezing, SOB at rest - Gastrointestinal Gastrointestinal: denies: Constipation, Diarrhea, Nausea, Vomiting - Genitourinary Genitourinary: denies: Dysuria - Integumentary Integumentary: denies: Rash, Pruritis - Neurological Neurological: denies: Headache - Psychiatric Psychiatric: denies: Depression, Anxiety - Hematologic/Lymphatic Hematologic/Lymphatic: denies: Anemia Physical - Abdominal Exam Vital Signs: Temp Pulse Resp BP Pulse Ox O2 Flow Rate 36.7 C 92 18 150/99 H 10/20/22 08:34 10/20/22 08:34 10/20/22 08:34 10/20/22 08:34 Contraction Frequency (min/apart): occasional Contraction Intensity: positive: Mild Uterine Resting Tone: positive: Soft - Monitoring Heart Rate Baseline: 130 Strip Review: positive: Category I - Presentation Presentation: positive: Vertex - Vaginal Exam Membranes: positive: Membranes intact Dilation (in cm): 2 Effacement (%): 70 Station: positive: -3 Cervical Position: positive: Midposition - Speculum Exam Speculum Exam Performed: positive: No Findings: positive: Other Plan for Labor - Plan For Labor I expect patient to be DC'd or transferred within 96 hours.: Yes Plan for Labor: Desire is a 37yo @ 38.1wks gestation by LMP c/w 6wk U/S who presents to [facility] for medical induction of labor secondary to gestational hypertension. She had SVE in the office yesterday which was /-3, midposition, soft and vertex with intact membranes. She denies vaginal bleeding, leakage of fluid or contractions since that time so SVE was deferred today. She has been a patient of [facility] for the duration of her which has been complicated only by her gestational hypertension and advanced maternal age. Gestational hypertension has remained mildly elevated and she has had PIH labs drawn on several occasions and they have all remained WNL. 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 SAB x 0. Last pap 06/2019-WNL, No hx of abnormals. Medical Hx: Anxiety, PCOS, Hypothyroidism Surgical Hx: Deviated septum repair 11/2021, Family Hx: HTN- mother; Thyroid disease- sister; Twins- sister (Clomid) Meds: PNV, Armor thyroid 90mg PO daily; Metformin 1500mg PO daily, Wellbutrin XR 150mg PO daily, PNV, 81mg ASA Allergies: None known Social: , lives with Rebel who works for [employer]. 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 No tobacco, ETOH or recreational drug use. Caffeine intake is minimal. course: B negative, antibody negative Rubella immune, varicella immune Hgb A1C 5.3 Baseline LFTs WNL 1 hour glucola 97 Rhogam 08/13/2022 FAS WNL with the exception of incomplete visualization LVOT and facial profile. Posterior placenta, no previa. Size c/w dating. 3VC. GERARD WNL F/u ultrasound WNL. Growth and GERARD at 35wks WNL. EFW 45%tile. GERARD WNL GBS negative Physical exam: Normocephalic, atraumatic Heart RRR w/o M/G/R Lungs CTAB FHR baseline 140s, moderate variability, + accels, no decels No contractions appreciated via tocometry SVE deferred (last exam less than 24 hours ago /-3, midposition, soft. Vertex) DTRs 2+, no clonus. Bilateral LE's trace edema. Mood is good. Assessment: 37yo @ 38.1wks gestation by LMP c/w 6wk U/S Gestational hypertension Advanced maternal age Hypothyroidism FHR Category I GBS negative Plan: Admit to [facility] for pre-induction cervical ripening with misoprostol 59mcg BC x once. Then initiate pitocin at 1300 for induction of labor with titration per protocol for induction of labor. Initial labetalol 100mg PO bid. Continuous monitoring. Encouraged ambulation and position changes. Nitrous oxide PRN. Jacuzzi PRN. Epidural per maternal request. Anticipate .
[2022-10-20] MEDS: CALCIUM CARBONATE CHEW 500 MG TABLET PO PRN ×2 (13:22→17:34)
[2022-10-20] MEDS: LACTATED RINGERS 1,000 ML IV SCH ×2 (13:25→23:02)
[2022-10-20] MEDS: OXYTOCIN/SODIUM CHLORIDE 500 ML IV SCH (13:26)
[2022-10-20] MEDS: LABETALOL 100 MG TABLET PO SCH ×2 (17:34→22:23)
--- NOTE | 2022-10-20 21:38 | PROVIDER PROGRESS NOTE ---
Labor Progress Note - Uterine Monitoring Uterine Monitoring Mode: positive: External toco Contraction Frequency (min/apart): 2-6 Contraction Intensity: positive: Mild to moderate Uterine Resting Tone: positive: Soft - Monitoring Monitor Mode: positive: External ultrasound Heart Rate Baseline: 150 Heart Rate Variability: positive: Moderate (6-25 bmp) Accelerations: positive: Present, 15x15 Decelerations: positive: None Strip Review: positive: Category I - Vaginal Exam Dilation (in cm): 3-4 Effacement (%): 80 Station: -2 Cervical Position: Posterior - Labor Progress Note Labor Progress Note/Additional Text: S: Feeling some increased cramping with contractions but tolerating them well. She has been doing her best to stay upright. She has gone for several walks, they did a side-lying release with the nurses in attempt to get the baby to descend. She is in good spirits and feeling well. She is supported by her Eddie. She continues to deny headache, visual disturbances, RUQ or epigastric pain. O: FHR baseline 150, moderate variability, + accels, no decels Contractions palpate mild every 2-6 minutes with soft resting tone SVE 3-4/80/-2, posterior, soft. Vertex. AROM occurred at 2100 and was noted to be a moderate amount of clear fluid. Pitocin at 16mU/mL BP moderately elevated A: 37yo @ 38.1wks gestation by LMP c/w 12wk U/S Gestational hypertension GBS neg FHR Category I P: Continue pitocin for induction of labor with titration per protocol. Continuous monitoring. Encouraged ambulation and position changes. Epidural per maternal request. Anticipate .
[2022-10-20] MEDS: FAMOTIDINE 20 MG TABLET PO SCH (22:15)
[2022-10-21] MEDS ORDERED: ROPIVACAINE 0.2% 200 MG/100 ML BAG EP ONE (00:23)
[2022-10-21] MEDS ORDERED: NALOXONE 0.4 MG/ML VIAL IVP PRN ×2 (01:01→21:00)
[2022-10-21] MEDS ORDERED: ONDANSETRON 4 MG/2 ML VIAL IVP PRN ×2 (01:01→21:00)
[2022-10-21] MEDS ORDERED: ePHEDrine 50 MG/ML VIAL IVP PRN ×2 (01:01→21:00)
[2022-10-21] MEDS ORDERED: diphenhydrAMINE INJ 50 MG/ML VIAL IVP PRN (01:01)
[2022-10-21] MEDS ORDERED: NALBUPHINE 10 MG/ML AMP IVP PRN (01:01)
--- NOTE | 2022-10-21 01:02 | ANESTHESIA ---
Pre-Anesthesia VS, & Labs - Diagnosis active labor - Procedure labor epidural Vital Signs: Temp Pulse Resp BP Pulse Ox O2 Flow Rate 36.7 C 92 18 150/99 H 10/20/22 08:34 10/20/22 08:34 10/20/22 08:34 10/20/22 08:34 Height: 6 ft Weight (kg): 134.717 kg Body Mass Index: 40.2 BMI Classification: Morbidly Obese - NPO Other - Is Patient ?: Yes - Lab Results Current Lab Results: Laboratory Tests 10/20/22 08:00: Sodium 140, Potassium 3.2 L, Chloride 107, Carbon Dioxide 24, Anion Gap 9.0, BUN 5 L, Creatinine 0.7, Estimated GFR (MDRD) 95, Glucose 85, Calcium 9.4, Total Bilirubin 0.4, AST 21, ALT 16, Alkaline Phosphatase 140 H, Total Protein 6.4 L, Albumin 2.7 L, Globulin 3.7, Albumin/Globulin Ratio 0.7 L 10/20/22 08:00: WBC 8.8, RBC 4.05 L, Hgb 11.1 L, Hct 33.8 L, MCV 83.5, MCH 27.4, MCHC 32.8, RDW 13.6, Plt Count 265, MPV 10.5, Neut # (Auto) 6.2, Lymph # (Auto) 1.7, [place] # (Auto) 0.8, Eos # (Auto) 0.1, Baso # (Auto) 0.0, Absolute Nucleated RBC 0.00, Nucleated RBC % 0.0 10/20/22 08:00: Blood Type B NEGATIVE, Antibody Screen NEGATIVE Fish Bones: 10/20/22 08:00 10/20/22 08:00 Home Medications and Allergies Active Medications Bupropion HCl (Bupropion Xl 150 Mg Tablet) 150 mg PO DAILY LATOSHA Last Admin: 10/20/22 09:37 Dose: 150 mg Calcium Carbonate/Glycine (Calcium Carbonate Chew 500 Mg Tablet) 1,000 mg PO TID PRN PRN Reason: Heartburn Last Admin: 10/20/22 17:34 Dose: 1,000 mg Carboprost Tromethamine (Carboprost Tromethamine 250 Mcg/Ml Amp) 250 mcg IM Q15M PRN PRN Reason: Step 4: Hemorrhage protocol Stop: 10/25/22 08:37 Famotidine (Famotidine 20 Mg Tablet) 20 mg PO BID [facility] Last Admin: 10/20/22 22:15 Dose: 20 mg Oxytocin/Sodium Chloride (Pitocin/Sodium Chloride) 500 mls @ 999 mls/hr IV PRN PRN; Protocol PRN Reason: POST- HEMORR PREVENTION Stop: 10/25/22 08:37 Tranexamic Acid (Tranexamic 1,000 Mg/100ml-Nacl) 1,000 mg in 100 mls @ 600 mls/hr IV .ONCE PRN PRN Reason: EBL >1200mL and within 3hr Stop: 10/25/22 08:37 Lactated Ringer's (Lr) 1,000 mls @ 100 mls/hr IV .Q10H [facility] Last Admin: 10/20/22 23:02 Dose: 100 mls/hr Oxytocin/Sodium Chloride (Pitocin/Sodium Chloride) 500 mls @ 1 mls/hr IV TITR [facility]; Protocol Last Titration: 10/20/22 23:35 Dose: 18 milliunit/min, 18 mls/hr Labetalol HCl (Labetalol 100 Mg Tablet) 200 mg PO TID [facility] Last Admin: 10/20/22 22:23 Dose: 200 mg Lidocaine HCl (Lidocaine 1% 20 Ml Mdv) 20 ml ID .ONCE PRN PRN Reason: PERINEAL REPAIR Stop: 10/25/22 08:37 Methylergonovine Maleate (Methylergonovine 0.2 Mg/Ml Vial) 0.2 mg IM .ONCE PRN PRN Reason: Step 2: Hemorrhage protocol Stop: 10/25/22 08:37 Misoprostol (Misoprostol 200 Mcg Tablet) 800 mcg BC .ONCE PRN PRN Reason: Step 3: Hemorrhage protocol Stop: 10/25/22 08:37 Misoprostol (Misoprostol 100 Mcg Tablet) 50 mcg BC Q4HR [facility] Last Admin: 10/20/22 09:12 Dose: 50 mcg Ondansetron HCl (Ondansetron 4 Mg/2 Ml Vial) 4 mg IVP Q4HR PRN PRN Reason: Nausea / Vomiting Oxytocin (Oxytocin 10 Unit/Ml Vial) 10 unit IM .ONCE PRN PRN Reason: Step one: If no IV access Stop: 10/25/22 08:37 Sodium Chloride (Sodium Chloride Flush 0.9% 10 Ml Syringe) 10 ml IVP 0100,0900,1700 LATOSHA Sodium Chloride (Sodium Chloride Flush 0.9% 10 Ml Syringe) 10 ml IVP PRN PRN PRN Reason: NEEDED PER PROVIDER ORDERS Thyroid (Thyroid 60 Mg Tablet) 90 mg PO QDAC LATOSHA Allergies/Adverse Reactions: Allergies Allergy/AdvReac Type Severity Reaction Status Date / Time No Known Drug Allergies Allergy Verified 10/20/22 08:33 Anes History & Medical History - Anesthetic History Anesthesia Complications: reports: No previous complications Family history of Anesthesia Complications: Denies Family history of Malignant Hyperthermia: Denies - Medical History Cardiovascular: reports: Hypertension Pulmonary: reports: Sleep apnea Gastrointestinal: reports: GERD Smoking Status: Never smoker - Obstetrical History : 1 Parity: 0 Events: reports: None Complications: reports: induced HTN Exam General: Alert, Oriented x3, Cooperative Dental: WNL Mouth Openin Fingerbreadth Neck Mobility: Normal Mallampati classification: II Thyromental Distance: 4-6 cm Respiratory: Lungs clear Cardiovascular: Regular rate Plan Anesthesia Type: Epidural Consent for Procedure(s) Verified and Reviewed: Yes Code Status: Attempt Resuscitation ASA classification: 3-Severe systemic disease Is this case an emergency?: No
[2022-10-21 06:41] LABS: BASOPHILS % (AUTO) 0.2 %; EOSINOPHILS # (AUTO) 0.1 10^3/uL (0.0-0.7); EOSINOPHILS % (AUTO) 0.7 %; HCT - HEMATOCRIT 31.6 % (37.0-47.0); HGB - HEMOGLOBIN 10.2 g/dL (12.0-16.0); LYMPHOCYTES # (AUTO) 1.3 10^3/uL (1.5-3.5); LYMPHOCYTES % (AUTO) 13.3 %; MEAN CORPUSCULAR HEMOGLOBIN 27.6 pg (27.0-31.0); MEAN CORPUSCULAR HGB CONC 32.3 g/dL (32.0-36.0); MEAN CORPUSCULAR VOLUME 85.4 fL (81.0-99.0); MEAN PLATELET VOLUME 9.9 fL (7.9-10.8); MONOCYTES # (AUTO) 0.8 10^3/uL (0.0-1.0); MONOCYTES % (AUTO) 7.9 %; NEUTROPHILS # (AUTO) 7.7 10^3/uL (1.5-6.6); NEUTROPHILS % (AUTO) 77.2 %; PLT - PLATELET COUNT 226 10^3/uL (130-450); RED CELL DISTRIBUTION WIDTH 13.8 % (12.0-15.0)
[2022-10-21 06:53] LABS: ALBUMIN 2.5 g/dL (3.2-5.5); ALBUMIN/GLOBULIN RATIO 0.8 (1.0-2.2); BILIRUBIN,TOTAL 0.5 mg/dL (0.2-1.0); CALCIUM 8.2 mg/dL (8.5-10.3); CREATININE 0.7 mg/dL (0.4-1.0); POTASSIUM 3.1 mmol/L (3.5-5.0); TOTAL PROTEIN 5.5 g/dL (6.7-8.2)
[2022-10-21] MEDS ORDERED: THYROID 60 MG TABLET PO SCH (07:00)
[2022-10-21] MEDS: THYROID 60 MG TABLET PO SCH ×2 (07:09→07:47)
[2022-10-21] MEDS: ROPIVACAINE 0.2% 200 MG/100 ML BAG EP PRN ×2 (07:46→14:22)
[2022-10-21] MEDS: LACTATED RINGERS 1,000 ML IV SCH ×2 (08:06→17:14)
[2022-10-21] MEDS: FAMOTIDINE 20 MG TABLET PO SCH (08:47)
[2022-10-21] MEDS: LABETALOL 100 MG TABLET PO SCH ×3 (08:47→23:46)
[2022-10-21] MEDS: buPROPion XL 150 MG TABLET PO SCH (08:47)
--- NOTE | 2022-10-21 10:55 | PROVIDER PROGRESS NOTE ---
Labor Progress Note - Uterine Monitoring Uterine Monitoring Mode: positive: External toco Contraction Frequency (min/apart): 3-5 Contraction Intensity: positive: Mild to moderate Uterine Resting Tone: positive: Soft - Monitoring Monitor Mode: positive: External ultrasound Heart Rate Baseline: 140 Heart Rate Variability: positive: Moderate (6-25 bmp) Accelerations: positive: Present, 15x15 Decelerations: positive: None Strip Review: positive: Category I - Vaginal Exam Dilation (in cm): 5 Effacement (%): 90 Station: -1 Cervical Position: Midposition - Labor Progress Note Labor Progress Note/Additional Text: S: Feeling comfortable in bed with her epidural. She is very tired because she has slept very little throughout the night. She is also feeling slightly discouraged about her slow progress. Her is supportive at the bedside. O: FHR baseline 140s, moderate variability, + accels, no decels Contractions palpate mild to moderate every 3-5 minutes with soft resting tone SVE 5/90/-1, midposition. Vertex. AROM x 13 hrs Pitocin @ 26mU/mL BP normotensive PIH labs -neg A: 37yo @ 38.2wks gestation by LMP c/w 12wk U/S Gestational hypertension Advanced maternal age Obesity FHR Category I GBS negative P: Continue pitocin for induction of labor with titration per protocol. Continuous monitoring. Encouraged position changes in bed on peanut ball. Type a cross x 2 units secondary to increased risk of hemorrhage. Repeat SVE when pitocin at 30mU x 30 minutes or sooner PRN. Consider IUPC with next SVE. Plan of care reviewed with medical facilities section director physician who is in agreement with above plan. Anticipate .
[2022-10-21] MEDS: SODIUM CHLORIDE FLUSH 0.9% 10 ML SYRINGE IVP SCH ×2 (11:34→17:17)
[2022-10-21] MEDS: OXYTOCIN/SODIUM CHLORIDE 500 ML IV SCH (15:30)
--- NOTE | 2022-10-21 17:24 | PROVIDER PROGRESS NOTE ---
Subjective - Subjective Subjective: S: Continues to feel comfortable with her epidural in place. She has started to feel some increased pelvic pressure but states it is definitely manageable. Her mood is good. Her is supportive at the bedside. O: FHR Baseline 145, moderate variability, + accels, no decels Contractions adequate (MVUs 190-240) consistently every 2-3 minutes with soft resting tone SVE 7/90/0, vertex AROM x 22 hours - afebrile Pitocin at 30mU/mL A: 37yo @ 38.2wks gestation by LMP Active labor Gestational hypertension Prolonged pitocin Advanced maternal age Obesity P: Continuous monitoring. Maintain epidural for pain management. Maintain pitocin at 30mU/mL and repeat SVE in 2 hours or sooner PRN. Reviewed potential for delivery with patient as she is changing slowly. Objective - Vital Signs/Intake & Output Intake & Output: Intake & Output 10/18/22 10/19/22 10/20/22 10/21/22 23:59 23:59 23:59 23:59 Intake Total 2540.667 1827.900 Output Total 1 2880 Balance 2539.667 -1052.100 - Lab Results Fish Bones: 10/21/22 06:24 10/21/22 06:24 Other Labs: Lab Results x24hrs 10/21/22 10/21/22 10/20/22 Range/Units 06:24 06:24 08:00 WBC 10.0 (4.8-10.8) x10^3/uL RBC 3.70 L (4.20-5.40) 10^6/uL Hgb 10.2 L (12.0-16.0) g/dL Hct 31.6 L (37.0-47.0) % MCV 85.4 (81.0-99.0) fL MCH 27.6 (27.0-31.0) pg MCHC 32.3 (32.0-36.0) g/dL RDW 13.8 (12.0-15.0) % Plt Count 226 (130-450) 10^3/uL MPV 9.9 (7.9-10.8) fL Neut # (Auto) 7.7 H (1.5-6.6) 10^3/uL Lymph # (Auto) 1.3 L (1.5-3.5) 10^3/uL [place] # (Auto) 0.8 (0.0-1.0) 10^3/uL Eos # (Auto) 0.1 (0.0-0.7) 10^3/uL Baso # (Auto) 0.0 (0.0-0.1) 10^3/uL Absolute Nucleated RBC 0.00 x10^3/uL Nucleated RBC % 0.0 /100WBC Sodium 139 (135-145) mmol/L Potassium 3.1 L (3.5-5.0) mmol/L Chloride 107 (101-111) mmol/L Carbon Dioxide 26 (21-32) mmol/L Anion Gap 6.0 (6-13) BUN 5 L (6-20) mg/dL Creatinine 0.7 (0.4-1.0) mg/dL Estimated GFR (MDRD) 95 (>89) Glucose 101 H (70-100) mg/dL Calcium 8.2 L (8.5-10.3) mg/dL Total Bilirubin 0.5 (0.2-1.0) mg/dL AST 17 (10-42) IU/L ALT 14 (10-60) IU/L Alkaline Phosphatase 123 H (42-121) IU/L Total Protein 5.5 L (6.7-8.2) g/dL Albumin 2.5 L (3.2-5.5) g/dL Globulin 3.0 (2.1-4.2) g/dL Albumin/Globulin Ratio 0.8 L (1.0-2.2) Blood Type B NEGATIVE Antibody Screen NEGATIVE Crossmatch IS Only See Detail
--- NOTE | 2022-10-21 19:33 | PROVIDER PROGRESS NOTE ---
Subjective - Subjective Subjective: S: Patient starting to feel increased discomfort with contractions. 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 She is feeling rather discouraged and very tired. O: FHR baseline 150s, moderate variability, + accels, no decels Contractions monitored via IUPC with MVUs 190-240 consistently every 2-3 minutes with soft resting tone SVE 7/90/0. Vertex. Pitocin @ 30mU/mL AROM x 26 hrs BPs moderately elevated A: 37yo @ 38.2wks gestation by LMP c/w 12wk U/S Gestational hypertension Advanced maternal age Obesity Prolonged pitocin induction of labor FHR Category I P: Reviewed options with patient extensively to include repeat SVE in 2 hours vs proceed with primary delivery secondary to failure to progress. After discussing risks, benefits, alternatives and discussing increased risk of bleeding, the patient requests a primary delivery be performed now. call center trainer physician notified and requested to present for evaluation and care handed off to physician. Objective - Vital Signs/Intake & Output Intake & Output: Intake & Output 10/18/22 10/19/22 10/20/22 10/21/22 23:59 23:59 23:59 23:59 Intake Total 2540.667 3441.233 Output Total 1 3480 Balance 2539.667 -38.767 - Lab Results Fish Bones: 10/21/22 06:24 10/21/22 06:24 Other Labs: Lab Results x24hrs 10/21/22 10/21/22 10/20/22 Range/Units 06:24 06:24 08:00 WBC 10.0 (4.8-10.8) x10^3/uL RBC 3.70 L (4.20-5.40) 10^6/uL Hgb 10.2 L (12.0-16.0) g/dL Hct 31.6 L (37.0-47.0) % MCV 85.4 (81.0-99.0) fL MCH 27.6 (27.0-31.0) pg MCHC 32.3 (32.0-36.0) g/dL RDW 13.8 (12.0-15.0) % Plt Count 226 (130-450) 10^3/uL MPV 9.9 (7.9-10.8) fL Neut # (Auto) 7.7 H (1.5-6.6) 10^3/uL Lymph # (Auto) 1.3 L (1.5-3.5) 10^3/uL [place] # (Auto) 0.8 (0.0-1.0) 10^3/uL Eos # (Auto) 0.1 (0.0-0.7) 10^3/uL Baso # (Auto) 0.0 (0.0-0.1) 10^3/uL Absolute Nucleated RBC 0.00 x10^3/uL Nucleated RBC % 0.0 /100WBC Sodium 139 (135-145) mmol/L Potassium 3.1 L (3.5-5.0) mmol/L Chloride 107 (101-111) mmol/L Carbon Dioxide 26 (21-32) mmol/L Anion Gap 6.0 (6-13) BUN 5 L (6-20) mg/dL Creatinine 0.7 (0.4-1.0) mg/dL Estimated GFR (MDRD) 95 (>89) Glucose 101 H (70-100) mg/dL Calcium 8.2 L (8.5-10.3) mg/dL Total Bilirubin 0.5 (0.2-1.0) mg/dL AST 17 (10-42) IU/L ALT 14 (10-60) IU/L Alkaline Phosphatase 123 H (42-121) IU/L Total Protein 5.5 L (6.7-8.2) g/dL Albumin 2.5 L (3.2-5.5) g/dL Globulin 3.0 (2.1-4.2) g/dL Albumin/Globulin Ratio 0.8 L (1.0-2.2) Blood Type B NEGATIVE Antibody Screen NEGATIVE Crossmatch IS Only See Detail
[2022-10-21] MEDS ORDERED: AZITHROMYCIN INJ 500 MG in SODIUM CHLORIDE 0.9% 250 ML IV ONE (19:52)
[2022-10-21] MEDS ORDERED: CELECOXIB 100 MG CAPSULE PO ONE (19:53)
--- NOTE | 2022-10-21 19:58 | CONSULTATION NOTE ---
Surgery Consult - Admit Date Hospital Admission Date: 10/20/22 - Consult Date Consult Date: 10/21/22 Requesting Provider: GILBERT Lugo - Chief Complaint Chief Complaint: Failure to progress - Home Meds/Allergies Allergies/Adverse Reactions: Allergies Allergy/AdvReac Type Severity Reaction Status Date / Time No Known Drug Allergies Allergy Verified 10/20/22 08:33 - Vital Signs Vital Signs: Last Vital Signs Temp 98.1 F 10/20/22 08:34 Pulse 92 10/20/22 08:34 Resp 18 10/20/22 08:34 BP 150/99 H 10/20/22 08:34 Pulse Ox O2 Flow Rate Intake & Output: Intake & Output 10/18/22 10/19/22 10/20/22 10/21/22 23:59 23:59 23:59 23:59 Intake Total 2540.667 3441.233 Output Total 1 3480 Balance 2539.667 -38.767 - Lab Results Result Diagrams: 10/21/22 06:24 10/21/22 06:24 - Consultation Note Consultation Note: HPI: Patient is a 37-year-old G1, P0 at 38 weeks 2 day gestation managed by GILBERT Lugo who is being induced at term for gestational hypertension. additionally complicated by advanced maternal age, hypothyroidism. She had misoprostol for cervical ripening followed by oxytocin. Patient mated to the active stage, but has had arrest of dilation despite adequate contractions on 30 milliunits/min of oxytocin with no significant cervical change. course per H&P by Joleen Magaña. All other symptoms reviewed and were negative except per HPI. PMH Anxiety PCOS Hypothyroidism PSH Deviated septum repair OB History G1, P0 SH Denies tobacco, alcohol, drugs. Family History Mother: Hypertension Sister: Thyroid disease Allergies No known drug allergies Medications vitamin Ira Thyroid 90 mg daily Metformin 1500 mg daily Wellbutrin XR 150 mg daily Aspirin 81 mg daily Physical exam: General: Alert, oriented, no acute distress Head: Normal cephalic atraumatic Eyes: PERRLA, extraocular motions intact. Respiratory: Normal rate of respiration. No accessory muscle use, normal respiratory effort. Cardiovascular: Regular rate and rhythm Abdomen: Gravid, nontender, nondistended Extremities: Normal range of motion Neuro: Oriented x3. Normal movements Psych: Appropriate mood and affect. Normal judgment and insight SVE: Most recent SVE by primary grounds caretaker FHT: 145 beats minute baseline, moderate variability, accelerations present, no decelerations. Category 1. [place]: Every 2 to 3 minutes Plan 37-year-old G1, P0 at 38 weeks 2 days gestation scheduled for primary low- transverse section for failure to progress 1. Failure to progress: -Plan for home primary low-transverse section -3 g cefazolin, 500 mg azithromycin prior to surgery - section was recommended. Risks, benefits and alternatives were discussed including but not limited to infection, bleeding that may require blood products or hysterectomy for life saving measures, injury to surrounding organs including but not limited to bowel, bladder, ureters, tubes and ovaries and/or the baby. Should injury occur it could require longer/additional surgery to repair. The patient stated understanding and desired to proceed. All questions were answered posed by patient. 2. 38 weeks gestation 3. Hypothyroidism 4. Prolonged rupture of membranes
[2022-10-21] MEDS ORDERED: ACETAMINOPHEN 500 MG TABLET PO ONE (20:00)
[2022-10-21] MEDS ORDERED: GABAPENTIN 400 MG CAPSULE PO ONE (20:00)
[2022-10-21] MEDS ORDERED: OXYTOCIN 10 UNIT/ML VIAL ONE (20:41)
[2022-10-21] MEDS ORDERED: ONDANSETRON 4 MG/2 ML VIAL ONE (20:41)
[2022-10-21] MEDS ORDERED: ePHEDrine 50 MG/ML VIAL IVP ONE (20:41)
[2022-10-21] MEDS ORDERED: CARBOPROST TROMETHAMINE 250 MCG/ML AMP IM ONE ×2 (20:52→21:30)
[2022-10-21] MEDS ORDERED: METOCLOPRAMIDE 10 MG/2 ML VIAL IVP PRN (21:00)
[2022-10-21] MEDS ORDERED: fentaNYL 100 MCG/2 ML VIAL IVP PRN (21:00)
[2022-10-21] MEDS ORDERED: LACTATED RINGERS 1,000 ML IV SCH ×2 (21:00→22:00)
[2022-10-21] MEDS ORDERED: MORPHINE 2 MG/ML CARPUJECT IVP PRN (21:00)
[2022-10-21] MEDS ORDERED: ATROPINE ABBOJECT 1 MG/10 ML SYRINGE IVP PRN (21:00)
[2022-10-21] MEDS ORDERED: HYDROmorphone 0.5 MG/0.5 ML SYRINGE IVP PRN (21:00)
[2022-10-21] MEDS ORDERED: PROMETHAZINE 25 MG/1 ML VIAL ONE (21:18)
[2022-10-21] MEDS ORDERED: oxyCODONE 5 MG TABLET PO PRN (21:45)
[2022-10-21] MEDS ORDERED: ONDANSETRON ODT 4 MG TABLET TL PRN (21:45)
[2022-10-21] MEDS ORDERED: DIPHENOX/ATROPINE 2.5/0.025 MG TABLET PO PRN (21:45)
[2022-10-21] MEDS ORDERED: SODIUM CHLORIDE FLUSH 0.9% 10 ML SYRINGE IVP PRN (21:45)
[2022-10-21] MEDS ORDERED: SIMETHICONE CHEW 80 MG TABLET PO PRN (21:45)
[2022-10-21] MEDS ORDERED: OXYTOCIN/SODIUM CHLORIDE 500 ML IV PRN (21:45)
--- NOTE | 2022-10-21 21:49 | OPERATIVE REPORT ---
Operative Report - General Admit Date: 10/20/22 Planned Procedure: Primary low-transverse section Pre-Op Diagnosis: Failure to progress, 38 weeks gestation Procedure Performed: Primary low-transverse section Post Op Diagnosis: Failure to progress, 38 weeks gestation - Procedure Note Primary Surgeon: Adolph Natarajan MD Secondary Surgeon: GILBERT Lugo Anesthesia Provider: Federica Babcock CRNA Anesthesia Technique: Spinal Pathology: None IV Fluids (mL): 1,300 Estimated Blood Loss (mL): 1,300 Urine Output (mL): 0 (Not measured) Complications: None - Other Other Information/Narrative: Preoperative diagnosis: 38 weeks gestation Failure to progress Gestational hypertension Hypothyroidism Postoperative diagnosis Same Status post primary low-transverse section Delivery of live odonnell Patient is admitted for induction of labor secondary to gestational hypertension at term. She received misoprostol for cervical ripening followed by oxytocin for augmentation. She progressed to 7 cm, but failed to progress after that despite 30 milliunits/min of oxytocin with adequate contractions. She been ruptured for approximately 24 hours and decision made to proceed with primary low-transverse section. section was recommended. Risks, benefits and alternatives were discus sed including but not limited to infection, bleeding that may require blood products or hysterectomy for life saving measures, injury to surrounding organs including but not limited to bowel, bladder, ureters, tubes and ovaries and/or the baby. Should injury occur it could require longer/additional surgery to repair. The patient stated understanding and desired to proceed. All questions were answered posed by patient. Prior to being taken to the OR, 3 grams of cefazolin IV and 500 mg azithromycin were administered. The patient was taken to the operating room where regional anesthesia was found to be adequate. She was then prepared and draped in the usual sterile fashion in the dorsal supine position with a leftward tilt displacing the uterus. Bryant was draining to gravity. SCDs were on bilateral lower extremities. A pfannenstiel skin incision was then made with the scalpel and carried through to the underlying layer of fascia. The fascia was incised in the midline and the incision extended laterally with the Gerardo scissors. The superior aspect of the facial incision was then grasped with the Manuel clamps, elevated and the underlying rectus muscles dissected off sharply. Attention was then turned to the inferior aspect of this incision which in a similar fashion was grasped, elevated with the Manuel clamps and the rectus muscle dissected off sharply. The rectus muscles were in the midline. The peritoneum identified, grasped with the pick-ups and entered sharply with the Metzenbaum scissors. The peritoneal incision was then extended superiorly and inferiorly with good visualization of the bladder. The bladder blade was inserted. The vesicouterine peritoneum was identified, grasped with the pick-ups, and entered sharply with Metzenbaum scissors. This incision was then extended laterally and the bladder flap created digitally. The bladder blade was reinserted. The lower uterine segment was identified and incised in a transverse fashion with the scalpel. The uterine incision was then extended bluntly laterally. Membranes had already been ruptured. The bladder blade was removed. The fetus was in a cephalic presentation. The infants head delivered atraumatically. The anterior shoulders were delivered followed by the posterior shoulders then the remainder of the body. The infants mouth and nose were bulb suctioned. The umbilical cord was clamped times two and cut. The infant was handed to the pediatric team. The placenta was removed with gentle traction. Oxytocin were added to IVF and allowed to run freely. The uterus was exteriorized and cleared of all clots and debris. The uterine incision was inspected and found to be without any extensions and was repaired with 0 Vicryl in a running, locked fashion. During the repair, uterine atony was noted, and patient received one dose of 250 mcg of Hemabate. A second imbricating layer was performed. She also required several [id number] sutures at the bleeding edge. Surgicel was placed over the wound. Upon inspection, the repaired hysterotomy was found to be hemostatic. The uterus was firm and returned to the abdomen. The gutters were cleared of all clots and debris. The peritoneum was closed with a running suture of 2-0 Vicryl. The fascia was reapproximated with 0 Vicryl in a running fashion. The subcutaneous tissue was closed with 2-0 Vicryl in 2 layers. The skin was closed in a subcuticular fashion with 4-0 Monocryl. The patient tolerated the procedure well. Sponge, lap and needle counts were correct times three. The patient was taken to the recovery room in stable condition. I appreciate the assistance of GILBERT Lugo during this procedure, and the assistance in retraction, visualization, dissection, and overall assistance during the case were instrumental to the patient's wellbeing.
[2022-10-21] MEDS ORDERED: LACTATED RINGERS 1,000 ML IV ONE (22:22)
--- NOTE | 2022-10-21 22:34 | ANESTHESIA POST OP EVALUATION ---
Anesthesia Post Eval - Post Anesthesia Eval Vitals: Last Vital Signs Temp 36.7 C 10/20/22 08:34 Pulse 92 10/20/22 08:34 Resp 18 10/20/22 08:34 BP 150/99 H 10/20/22 08:34 Pulse Ox O2 Flow Rate CV Function Including HR & BP: Stable Pain Control: Satisfactory Nausea & Vomiting: Negative Mental Status: Baseline Respiratory Status: Airway Patent Hydration Status: Satisfactory Anesthesia Complications: None
[2022-10-22] MEDS ORDERED: SODIUM CHLORIDE FLUSH 0.9% 10 ML SYRINGE IVP SCH (01:00)
[2022-10-22] MEDS: KETOROLAC 30 MG/ML VIAL IVP SCH ×3 (03:10→15:33)
[2022-10-22 06:11] LABS: BASOPHILS # (AUTO) 0.1 10^3/uL (0.0-0.1); BASOPHILS % (AUTO) 0.4 %; EOSINOPHILS % (AUTO) 0.2 %; HCT - HEMATOCRIT 28.9 % (37.0-47.0); HGB - HEMOGLOBIN 9.4 g/dL (12.0-16.0); LYMPHOCYTES # (AUTO) 1.9 10^3/uL (1.5-3.5); LYMPHOCYTES % (AUTO) 14.1 %; MEAN CORPUSCULAR HEMOGLOBIN 27.6 pg (27.0-31.0); MEAN CORPUSCULAR HGB CONC 32.5 g/dL (32.0-36.0); MEAN PLATELET VOLUME 9.9 fL (7.9-10.8); MONOCYTES # (AUTO) 1.3 10^3/uL (0.0-1.0); MONOCYTES % (AUTO) 9.6 %; NEUTROPHILS % (AUTO) 75.1 %; PLT - PLATELET COUNT 233 10^3/uL (130-450); RED CELL DISTRIBUTION WIDTH 13.8 % (12.0-15.0); WHITE BLOOD COUNT 13.3 x10^3/uL (4.8-10.8)
[2022-10-22] MEDS: LABETALOL 100 MG TABLET PO SCH (06:14)
[2022-10-22] MEDS: THYROID 60 MG TABLET PO SCH (08:03)
[2022-10-22] MEDS: buPROPion XL 150 MG TABLET PO SCH (09:10)
--- NOTE | 2022-10-22 09:32 | PROVIDER PROGRESS NOTE ---
Subjective - Prog Note Date Prog Note Date: 10/22/22 Prog Note Time: 10:12 - Subjective Pt reports feeling: Improved Subjective: Subjective Patient reports she is doing well. Lochia appropriate. Denies heavy bleeding. Ambulating. Pelvic and abdominal pain well-controlled. Tolerating oral intake. Diet: Regular. Catheter remains in place. Passing flatus. Denies BM. Patient is bonding with baby in room Breast feeding going well. Denies feeling lightheaded, dizzy or excessively fatigued. Objective General: Alert, oriented, no apparent distress. Cardiovascular: Regular rate. Regular rhythm. Lungs: No increased work of breathing. Abdomen: Uterus firm. Below umbilicus. No guarding or rebound. Extremities: No pain on palpation. No cords palpated. Distal pulses intact. Incision: Clean, dry, and intact. Bandage removed today Assessment and Plan day 1. -Routine care -Anticipate discharge in 1 to 2 days -Bryant out this morning. Encourage ambulation. hemorrhage -Hemoglobin from 11.1 to 9.4 Gestational hypertension -We will get repeat preeclampsia labs in the morning Objective - Vital Signs/Intake & Output Vital Signs: Vital Signs x48h Temp Pulse Resp BP 10/22/22 06:10 98.5 F 105 H 14 115/64 10/22/22 02:00 99.2 F 109 H 20 119/70 Intake & Output: Intake & Output 10/19/22 10/20/22 10/21/22 10/22/22 23:59 23:59 23:59 23:59 Intake Total 2540.667 3441.233 1500 Output Total 1 6210 1850 Balance 2539.667 -188.767 -350 - Lab Results Fish Bones: 10/22/22 06:02 10/21/22 06:24 Other Labs: Lab Results x24hrs 10/22/22 10/20/22 Range/Units 06:02 08:00 WBC 13.3 H (4.8-10.8) x10^3/uL RBC 3.40 L (4.20-5.40) 10^6/uL Hgb 9.4 L (12.0-16.0) g/dL Hct 28.9 L (37.0-47.0) % MCV 85.0 (81.0-99.0) fL MCH 27.6 (27.0-31.0) pg MCHC 32.5 (32.0-36.0) g/dL RDW 13.8 (12.0-15.0) % Plt Count 233 (130-450) 10^3/uL MPV 9.9 (7.9-10.8) fL Neut # (Auto) 10.0 H (1.5-6.6) 10^3/uL Lymph # (Auto) 1.9 (1.5-3.5) 10^3/uL [place] # (Auto) 1.3 H (0.0-1.0) 10^3/uL Eos # (Auto) 0.0 (0.0-0.7) 10^3/uL Baso # (Auto) 0.1 (0.0-0.1) 10^3/uL Absolute Nucleated RBC 0.00 x10^3/uL Nucleated RBC % 0.0 /100WBC Blood Type B NEGATIVE Antibody Screen NEGATIVE Crossmatch IS Only See Detail
[2022-10-22] MEDS: IBUPROFEN 600 MG TABLET PO SCH (15:58)
[2022-10-22] MEDS ORDERED: IBUPROFEN 600 MG TABLET PO ONE (16:00)
[2022-10-22] MEDS: ACETAMINOPHEN 500 MG TABLET PO SCH (20:30)
[2022-10-22] MEDS: FAMOTIDINE 20 MG TABLET PO SCH (21:48)
[2022-10-22] MEDS: DOCUSATE SODIUM 100 MG CAPSULE PO SCH (21:48)
[2022-10-23] MEDS: ACETAMINOPHEN 500 MG TABLET PO SCH ×2 (03:54→12:05)
[2022-10-23] MEDS: IBUPROFEN 600 MG TABLET PO SCH ×2 (03:54→09:07)
[2022-10-23] MEDS: THYROID 60 MG TABLET PO SCH ×2 (06:52→06:53)
[2022-10-23 07:33] LABS: BASOPHILS # (AUTO) 0.1 10^3/uL (0.0-0.1); BASOPHILS % (AUTO) 0.5 %; EOSINOPHILS # (AUTO) 0.2 10^3/uL (0.0-0.7); EOSINOPHILS % (AUTO) 1.8 %; HCT - HEMATOCRIT 27.9 % (37.0-47.0); HGB - HEMOGLOBIN 8.9 g/dL (12.0-16.0); LYMPHOCYTES # (AUTO) 1.9 10^3/uL (1.5-3.5); LYMPHOCYTES % (AUTO) 19.3 %; MEAN CORPUSCULAR HEMOGLOBIN 27.6 pg (27.0-31.0); MEAN CORPUSCULAR HGB CONC 31.9 g/dL (32.0-36.0); MEAN CORPUSCULAR VOLUME 86.4 fL (81.0-99.0); MONOCYTES # (AUTO) 0.7 10^3/uL (0.0-1.0); MONOCYTES % (AUTO) 7.5 %; NEUTROPHILS # (AUTO) 6.7 10^3/uL (1.5-6.6); NEUTROPHILS % (AUTO) 70.1 %; PLT - PLATELET COUNT 243 10^3/uL (130-450); RED BLOOD COUNT 3.23 10^6/uL (4.20-5.40); RED CELL DISTRIBUTION WIDTH 14.1 % (12.0-15.0); WHITE BLOOD COUNT 9.6 x10^3/uL (4.8-10.8)
[2022-10-23 07:46] LABS: ALBUMIN 2.2 g/dL (3.2-5.5); ALBUMIN/GLOBULIN RATIO 0.7 (1.0-2.2); BILIRUBIN,TOTAL 0.3 mg/dL (0.2-1.0); CALCIUM 8.1 mg/dL (8.5-10.3); CREATININE 0.6 mg/dL (0.4-1.0); POTASSIUM 3.9 mmol/L (3.5-5.0); TOTAL PROTEIN 5.5 g/dL (6.7-8.2)
[2022-10-23 08:57] VITALS: BP 134/86
[2022-10-23] MEDS: buPROPion XL 150 MG TABLET PO SCH (09:07)
[2022-10-23] MEDS: DOCUSATE SODIUM 100 MG CAPSULE PO SCH (09:07)
[2022-10-23] MEDS: FAMOTIDINE 20 MG TABLET PO SCH (09:08)
--- NOTE | 2022-10-23 11:57 | DISCHARGE SUMMARY ---
"Discharge Summary Discharge Date: 10/23/22 Code Status: Attempt Resuscitation Condition at Discharge: Good Discharge Disposition: 01 Home, Self Care - DIAGNOSES Admission Diagnoses: 1. 38wid gestation 2. Gestional HTN 3. Hypothyroidism 4. H/O anxiety 5. PCOS Discharge Diagnoses with Status of Each Condition: 1. Primary low transverse delivery on 10/21/22 2. Failure to progress with cervix remaining at 7 cm despite 30 denice units of Pitocin 3. History of anxiety well controlled with Wellbutrin 4. Hypothyroidism 5. History of PCOS 6. Anemia due to acute blood loss - HPI History of Present Illness: Patient is a 37 year old female G1 now P1001 who was admitted for induction of labor on October 20, 2022 secondary to gestational hypertension at 38 weeks [facility]. She received misoprostol for cervical ripening followed by oxytocin for augmentation. She progressed to 7 cm, but failed to progress after that despite 30 milliunits/min of oxytocin with adequate contractions. She was ruptured for approximately 24 hours and decision made to proceed with primary low-transverse section which was completed on 10/21/22. She an EBL of 1300 ml. Her post operative course was uncomplicated. She was able to tolerate a regular diet, ambulate and had a bowel movement. She requested to return homo on 10/23/22. We reviewed post operative care instructions, anemia precautions, and control options. - HOSPITAL COURSE Hospital Course: Patient is a 37 year old female G1 now P1001 who was admitted for induction of labor on October 20, 2022 secondary to gestational hypertension at 38 weeks gestation. She received misoprostol for cervical ripening followed by oxytocin for augmentation. She progressed to 7 cm, but failed to progress after that despite 30 milliunits/min of oxytocin with adequate contractions. She was ruptured for approximately 24 hours and decision made to proceed with primary low-transverse section which was completed on 10/21/22. She an EBL of 1300 ml. Her post operative course was uncomplicated. She was able to tolerate a regular diet, ambulate and had a bowel movement. She requested to return homo on 10/23/22. We reviewed post operative care instructions, anemia precautions, and control options. - ALLERGIES Allergies/Adverse Reactions: Allergies Allergy/AdvReac Type Severity Reaction Status Date / Time No Known Drug Allergies Allergy Verified 10/20/22 08:33 - MEDICATIONS Home Medications Other | Comments: 1. Ibuprofen 600 m po every 6 hours prn 2. Oxycodone 5 mg every 4 hours prn for pain 3. PVN po daily 4. Iron sulfate 325 mg po daily 5. Colace po daily 6. Welbutrin 7. Armor thyroid - PHYSICAL EXAM AT DISCHARGE General Appearance: positive: No acute distress, Alert Abdomen: positive: Non-tender, Nml bowel sounds, Other (Incision is clean. Uterus if firm below umbilicus.) Skin: positive: Color nml Extremities: positive: Non-tender, Pedal edema Neurologic/Psychiatric: positive: Oriented x3 Reflexes: Bicep (R): 1+, Bicep (L): 1+, Knee (R): 1+, Knee (L): 1+, Ankle (R): 1+, Ankle (L): 1+ - LABS Result Diagrams: 10/23/22 07:10 10/23/22 07:10 - QUALITY (Female Hip Fx Only) Was patient sent home on osteoporosis medication?: No - FOLLOW UP Follow Up: Dr. Adolph Natarajan in 1-2 weeks for a postoperative exam. - TIME SPENT Time Spent in Discharge (Minutes): 30"
--- NOTE | 2022-10-23 12:41 | Discharge Plan ---
Discharge Plan Problem Reviewed?: Yes Disposition: Home, Self Care Condition: Good Prescriptions: oxyCODONE [Roxicodone] 5 mg PO Q4HR PRN #24 tab PRN Reason: PAIN Docusate Sodium 100Mg Capsule [Colace 100Mg Capsule] 100 mg PO BID #30 cap Ibuprofen [Motrin] 600 mg PO Q6H PRN #30 tab PRN Reason: Abdominal Pain Diet: Regular Activity Restrictions: Additional Comments (Avoid anything inside the vagina for 6 weeks. Avoid lifting more than 10 pounds for 6 weeks.) Shower Restrictions: No Driving Restrictions: No No Smoking: If you smoke, Please STOP! Call for help.
--- NOTE | 2022-10-23 16:02 | Labor Flowsheet ---
Labor Flowsheet Datetime Report Generated by CPN: 10/23/2022 16:02 Datetime: 10/23/2022 08:56 VITAL SIGNS NBP Sys/Jessica/Mean (mmHg): 134 : 86 : 96 Pulse: 84 Datetime: 10/21/2022 23:09 Stage of : Datetime: 10/21/2022 20:00 LaborFlag: Labor Datetime: 10/21/2022 19:54 SpO2 (%): 100 Datetime: 10/21/2022 19:45 STAGE 2 Preparation for Delivery: IUPC Removed Intact Datetime: 10/21/2022 19:29 MEDICATIONS Pitocin (milliunits): Discontinued Medication Comments: Pitocin discontinued due to plan to proceed with CSection per verbal request A . Archana, CNM Datetime: 10/21/2022 19:10 COMMUNICATION Communication: Report Given to @ Jonique Paulino, RN Communication Comments: shift change report Datetime: 10/21/2022 19:02 Exam by: Archana Vaginal Exam Comments: unchanged Datetime: 10/21/2022 18:59 UTERINE ACTIVITY Monitor Mode: Internal Frequency (min): 2-3 Duration (sec): 60-70 Pattern: Normal: <= 5 Contractions in 10 Minutes Resting Tone IUP (mmHg): 0 Intensity IUP (mmHg): 35-55 [place] Units (mmHg): 240 ASSESSMENT A Monitor Mode: External US FHR Baseline Rate : 145 Variability: Moderate 6-25 bpm Accelerations: 15X15 Decelerations: None Category: Category I Datetime: 10/21/2022 18:53 Temperature (C): 37.6 Datetime: 10/21/2022 18:45 Pitocin Checklist: At Least 1 Acceleration of 15 bpm x 15 Seconds in 30 Minutes or Adequate Variabi lity; No More than 1 Late Deceleration Occurred in Past 30 Minutes; No More than 2 Variable Decelerat ions > 60 Seconds in Duration and decreasing >60 bpm in 30 minutes; No More than 5 Uterine Contractio ns in 10 Minutes for any 20 Minute Interval; IUPC Resting Tone less than 25 mmHg Datetime: 10/21/2022 18:14 Respirations: 19 Temperature Route: Oral PAIN Pain Scale: 3 Pain Presence: Constant Pain Type: Cramping Pain Location: Abdomen Pain Goal: 5 Pain Relief Measures: Epidural Given; Comfort Measures Pain Coping: Talking Through Contractions Anesthesia Level Check: T10- Umbilicus Datetime: 10/21/2022 17:15 PATIENT CARE IV/Blood Work: New IV Bag Hung Datetime: 10/21/2022 17:00 Oxygen Method: Room Air Datetime: 10/21/2022 16:58 VAGINAL EXAM Dilatation (cm): 7.0 Effacement (%): 95 Station: 0 Datetime: 10/21/2022 16:33 Patient Position/Activity: High Fowlers Patient Care Comments: legs lowered Datetime: 10/21/2022 16:19 Monitor Interventions for FHR: Ultrasound Adjusted Datetime: 10/21/2022 16:15 FHR Baseline Changes: No Baseline Change Datetime: 10/21/2022 15:45 Comments: indeterminate baseline. Difficulty maintaining EFM in current position. Intermiitantly heard at 130. Continue to adjust and monitor FHR Datetime: 10/21/2022 15:00 Actions for Decelerations: Side to Side; Blood Pressure Datetime: 10/21/2022 14:22 Anesthesia Comments: New bag Ropivicaine hung Datetime: 10/21/2022 13:30 Monitor Interventions for UA: [place] Adjusted Quality: Moderate Resting Tone (Palpate): Relaxed Datetime: 10/21/2022 13:15 Contraction Comments: indeterminate, continue to monitor Datetime: 10/21/2022 09:32 Cervix, Consistency: Soft Datetime: 10/21/2022 05:03 Vaginal Bleeding: None Cervix, Position: Posterior Provider Notified (Name): Archana Notification Reason: Other Datetime: 10/21/2022 02:14 I/O Interventions: Bryant Cath Inserted Datetime: 10/21/2022 00:46 Epidural Procedure Other: Pump Started Datetime: 10/21/2022 00:45 Epidural Procedure: Loading Dose Datetime: 10/21/2022 00:28 PROCEDURE TIME OUT Procedure Verify: Correct Patient Identity; Correct Side and Site are Marked; Accurate Procedure Co nsent Form; Agreement on Procedure to be Done; Correct Patient Position ANESTHESIA Anesthesia Plans: Epidural Epidural Positioning: Sitting Datetime: 10/20/2022 21:14 Membrane Status: Ruptured Membranes Rupture Method: Artificial Amniotic Fluid Color: Clear Amniotic Fluid Amount: Small Amniotic Fluid Odor: Normal Membrane Comments: Rangely tinted Datetime: 10/20/2022 21:10 Provider Reviewed Strip: Yes Datetime: 10/20/2022 19:54 Vital Sign Comments: infiltrated. stopped fluids to replace Datetime: 10/20/2022 18:38 Comfort Measures: Breathing/Relaxation; Family Support Datetime: 10/20/2022 09:12 Cervical Ripening Agents: Cytotec @ Datetime: 10/05/2022 11:24 Membranes Ruptured Date/Time: 10/20/2022 21:14
== END 2022-10-23 15:20 | disposition home or self-care (01) | DRG 787 ==
LOC: WFO 07:25 → FBP 07:26 → WFO 08:36 → FBP 08:37
PROVIDERS: ADMIT Nurse Practitioner Obstetrics & Gynecology; ATTEND Obstetrics & Gynecology
PROC: 3E0DXGC Introduction of Other Therapeutic Substance into Mouth and Pharynx, External Approach (ICD-10-PCS; 2022-10-20)
PROC: 10907ZC Drainage of Amniotic Fluid, Therapeutic from Products of Conception, Via Natural or Artificial Opening (ICD-10-PCS; 2022-10-20)
PROC: 10D00Z1 Extraction of Products of Conception, Low, Open Approach (ICD-10-PCS; principal; 2022-10-21 20:30)
DX: O13.4 Gestational [pregnancy-induced] hypertension without significant proteinuria, complicating childbirth (principal); D62 Acute posthemorrhagic anemia; O62.0 Primary inadequate contractions; Z3A.38 38 weeks gestation of pregnancy; Z37.0 Single live birth; O99.284 Endocrine, nutritional and metabolic diseases complicating childbirth; E03.9 Hypothyroidism, unspecified; E28.2 Polycystic ovarian syndrome; O99.344 Other mental disorders complicating childbirth; F41.9 Anxiety disorder, unspecified; O90.81 Anemia of the puerperium; O99.214 Obesity complicating childbirth; O72.1 Other immediate postpartum hemorrhage; Z79.82 Long term (current) use of aspirin; Z79.84 Long term (current) use of oral hypoglycemic drugs; Z79.890 Hormone replacement therapy; Z79.899 Other long term (current) drug therapy
CPT/HCPCS: 36415; 80053; 82570; 84156; 85025; 86850; 86900; 86901; 86920; A9270; J2765; J7120

== ENCOUNTER 2023-07-07 11:17 | Outpatient (CLI) | payer OTHER ==
--- NOTE | 2023-07-07 11:47 | XRAY Report ---
PROCEDURE: Chest 2V INDICATIONS: ACUTE COUGH TECHNIQUE: 2 views of the chest were acquired. COMPARISON: None. FINDINGS: Surgical changes and devices: None. Lungs and pleura: No pleural effusions or pneumothorax. Lungs are clear. Mediastinum: Mediastinal contours appear normal. Heart size is normal. Bones and chest wall: No suspicious bony lesions. Overlying soft tissues appear unremarkable. IMPRESSION: No acute cardiopulmonary process. Reviewed by: Chandra Hubbard MD on 07/07/2023 11:45 AM [facility] Approved by: Chandra Hubbard MD on 07/07/2023 11:45 AM [facility] Station ID: [id number]
== END 2023-07-07 11:18 | disposition home or self-care (01) ==
LOC: DI 11:17
PROVIDERS: ATTEND Registered Nurse
DX: R05.1 Acute cough (principal)

== ENCOUNTER 2023-10-27 14:36 | Outpatient (CLI) | payer OTHER ==
[2023-10-27 15:15] LABS: CREATININE 1.1 mg/dL (0.6-1.3); POTASSIUM 4.4 mmol/L (3.5-4.5)
[2023-10-27 15:45] LABS: BASOPHILS # (AUTO) 0.1 10^3/uL (0.0-0.1); BASOPHILS % (AUTO) 0.8 %; EOSINOPHILS # (AUTO) 0.3 10^3/uL (0.0-0.7); EOSINOPHILS % (AUTO) 3.2 %; HCT - HEMATOCRIT 47.5 % (37.0-47.0); HGB - HEMOGLOBIN 15.9 g/dL (12.0-16.0); LYMPHOCYTES # (AUTO) 2.6 10^3/uL (1.5-3.5); LYMPHOCYTES % (AUTO) 29.7 %; MEAN CORPUSCULAR HEMOGLOBIN 28.3 pg (27.0-31.0); MEAN CORPUSCULAR HGB CONC 33.5 g/dL (32.0-36.0); MEAN CORPUSCULAR VOLUME 84.7 fL (81.0-99.0); MEAN PLATELET VOLUME 9.3 fL (7.9-10.8); MONOCYTES # (AUTO) 0.6 10^3/uL (0.0-1.0); MONOCYTES % (AUTO) 6.2 %; NEUTROPHILS # (AUTO) 5.3 10^3/uL (1.5-6.6); NEUTROPHILS % (AUTO) 59.3 %; PLT - PLATELET COUNT 321 10^3/uL (130-450); RED BLOOD COUNT 5.61 10^6/uL (4.20-5.40); WHITE BLOOD COUNT 8.9 x10^3/uL (4.8-10.8)
== END 2023-10-27 14:37 | disposition home or self-care (01) ==
LOC: LAB 14:36
PROVIDERS: ATTEND Emergency Medicine
DX: R10.31 Right lower quadrant pain (principal)
CPT/HCPCS: 36415; 80048; 85025

== ENCOUNTER 2025-04-05 07:53 | Inpatient (IN) ==
--- OUTSIDE RECORDS SUMMARY | 2025-04-05 07:56 | EXTERNAL MEDICAL SUMMARY RPT | Continuity of Care Document ---
Author Organization [place] Address [address] [place] [id number] Phone Problems date description facility 2024-12-26 13:16 Supervision of elder ly multigravida, unspecified trimester [facility] 2025-01-07 15:26 Supervision of elder ly multigravida, unspecified trimester [facility] 2025-01-07 15:28 Supervision of elder ly multigravida, unspecified trimester [facility] 2025-01-08 00:01 Supervision of elder ly multigravida, unspecified trimester [facility] 2025-01-09 08:45 Supervision of elderly multigra yulia, second trimester [facility] 2025-01-17 08:31 Hypothyroidism, unspecified [facility] 2025-01-17 08:31 Supervision of elder ly multigravida, unspecified trimester [facility] 2025-01-17 08:31 Endocrine, nutrition al and metabolic diseases complicating , unspecified trimester [facility] 2025-01-18 00:04 Hypothyroidism, unspecified [facility] 2025-01-18 00:04 Supervision of elder ly multigravida, unspecified trimester [facility] 2025-01-18 00:04 Endocrine, nutrition al and metabolic diseases complicating , unspecified trimester [facility] 2025-02-15 11:37 Supervision of elder ly multigravida, unspecified trimester [facility] 2025-02-15 11:37 Other specified preg shahab related conditions, unspecified trimester [facility] 2025-02-15 11:37 Maternal care for lo w transverse scar from previous delivery [facility] 2025-02-15 11:37 Encounter for immunization [facility] 2025-02-15 11:37 Unspecified blood type, Rh nega tive [facility] 2025-02-20 00:02 Epistaxis [facility] 2025-03-01 13:51 Maternal care for lo w transverse scar from previous delivery [facility] 2025-03-11 10:53 Encounter for immunization [facility] 2025-03-11 16:01 Encounter for immunization [facility] 2025-03-13 12:26 Supervision of elderly multigra yulia, third trimester [facility] 2025-03-13 12:26 Encounter for immunization [facility] 2025-03-13 12:26 33 weeks gestation of [facility] 2025-03-28 10:18 Pruritus, unspecified [facility] 2025-03-29 00:04 [facility], [facility]25-04-02 14:19 Encounter for screeni ng for Streptococcus B [facility] 2025-04-02 14:42 Elevated blood-press ure reading, without diagnosis of hypertension [facility] 2025-04-02 14:42 Encounter for screeni ng for Streptococcus B [facility] 2025-04-02 14:49 Elevated blood-press ure reading, without diagnosis of hypertension [facility] 2025-04-02 15:29 Elevated blood-press ure reading, without diagnosis of hypertension [facility] 2025-04-03 00:04 Elevated blood-press ure reading, without diagnosis of hypertension [facility] 2025-04-03 00:04 Encounter for screeni ng for Streptococcus B [facility] 2025-04-03 00:05 Elevated blood-press ure reading, without diagnosis of hypertension [facility] 2025-04-04 09:12 Other specified preg shahab related conditions, first trimester [facility] 2025-04-04 09:12 Elevated blood-press ure reading, without diagnosis of hypertension [facility] 2025-04-04 09:13 Elevated blood-press ure reading, without diagnosis of hypertension [facility] 2025-04-04 11:30 Elevated blood-press ure reading, without diagnosis of hypertension [facility] Results/Labs test date facility value unit notes Result panel 1 THYROID STIMULATING HORMONE 2025-01-17 09[facility]39 [facility] 1.50 uiu/ml (missing) AFP VALUE 2025-01-17 09:39 [facility] 115.8 ng/ml (missing) RED CELL DISTRIBUTION WIDTH 2025-01-17 09:39 [facility] 13.4 % (missing) HGB - HEMOGLOBIN 2025-01-17 09:39 [facility] 13.5 g/dl (missing) WEIGHT 2025-01-17 09:39 [facility] 251 lbs (missing) GEST. AGE ON COLLECTION DATE 2025-01-17 09:39 [facility] 26.0 weeks (missing) PLT - PLATELET COUNT 2025-01-17 09:39 [facility] 268 10 3/ul (missing) MEAN CORPUSCULAR HEMOGLOBIN 2025-01-17 09:39 [facility] 29.5 pg (missing) MEAN CORPUSCULAR HGB CONC 2025-01-17 09:39 [facility] 34.1 g/dl (missing) MATERNAL AGE AT GERALD 2025-01-17 09:39 [facility] 40.0 yr (missing) HCT - HEMATOCRIT 2025-01-17 09:39 [facility] 39.6 % (missing) RED BLOOD COUNT 2025-01-17 09:39 [facility] 4.57 10 6/ul (missing) MEAN CORPUSCULAR VOLUME 2025-01-17 09:39 [facility] 86.7 fl (missing) MEAN PLATELET VOLUME 2025-01-17 09:39 [facility] 9.5 fl (missing) WHITE BLOOD COUNT 2025-01-17 09:39 [facility] 9.5 x10 3/ul (missing) GLUCOSE,1H PP 50GM DOSE 2025-01-17 09:39 [facility] 96 mg/dl 50g Challenge 1 hr post Glucose < 140 mg/dL Reference: [place] [employer] As of December 2022 testing method has changed, this may include reference ranges. RACE 2025-01-17 09:39 [facility] (missing) (missing) INTERPRETATION 2025-01-17 09:39 [facility] Comment (missing) Interpretation: An interpretation CANNOT be provided for this patient due to one of the following reasons: 1. Gestational age is <15 weeks. Please submit a second sample at the optimum gestational age for screening (16-18 weeks). OR 2. Gestational age is greater than 23 weeks. INTERPRETATION 2025-01-17 09:39 [facility] Comment (missing) Not infected with HCV unless early or acute infection is suspected (which may be delayed in an immunocompromised individual), or other evidence exists to indicate HCV infection. Performed at: [facility] [address], [place], [place] [id number] Graduate Fellow: Elia Infante MD, Phone: [phone] INSULIN DEP DIABETES 2025-01-17 09:39 [facility] Comment (missing) Not provided. COMMENTS 2025-01-17 09:39 [facility] Comment (missing) Alana Eastman, Ph.D., [facility] Director References: Available Upon Request. Multiples Of Median Cutoffs For AFP Elevations Perez 2.5 Black 2.8 IDD 2.0 Twins 4.5 Abbreviation Definitions IDD - Insulin Dep Diabetes OSBR - Open Spina Bifida Risk For further inquiries contact [facility] at [phone]. This test was developed and its performance characteristics determined by [employer]. It has not been cleared or approved by the Food and Drug Administration. Performed at: [facility] [id number] [place], [place] [id number] Graduate Fellow: Thom Chance [facility], Phone: [phone] GESTAT. AGE METHOD 2025-01-17 09:39 [facility] GERALD (missing) 04/25/2025 Recalculations are not recommended when gestational dating by LMP and ultrasound are within 10 days. MULTIPLE GESTATION 2025-01-17 09:39 [facility] No (missing) (missing) HCV AB 2025-01-17 09:39 [facility] Non Reactive (missing) (missing) HIV SCREEN 4TH GENERATION 2025-01-17 09:39 [facility] Non Reactive (missing) HIV-1/HIV-2 antibodies and HIV-1 p24 antigen were NOT detected. There is no laboratory evidence of HIV infection. HIV Negative Performed at: [facility] [address], [place], [place] [id number] Graduate Fellow: Elia Infante MD, Phone: [phone] RESULTS 2025-01-17 09:39 [facility] Report (missing) N [id number] N ULTRASOUND 17.4 [id number] 4 17 1 N 251 N Y N N N AFP MOM 2025-01-17 09:39 [facility] See interpretatio n. (missing) (missing) OPEN SPINA BIFIDA RISK 1 IN 2025-01-17 09:39 [facility] See interpretatio n. (missing) (missing) TEST RESULTS 2025-01-17 09:39 [facility] See interpretatio n. (missing) (missing) Result panel 2 BILIRUBIN,TOTAL 2025-03-28 10:24 [facility] 0.2 mg /dl As of December 2022 testing method has changed, this may include reference ranges. CREATININE 2025-03-28 10:24 [facility] 0.7 mg/dl As of December 2022 testing method has changed, this may include reference ranges. ALBUMIN/GLOBULIN RATIO 2025-03-28 10:24 [facility] 1.1 (missing) (missing) CHLORIDE 2025-03-28 10:24 [facility] 105 mmol/l As of December 2022 testing method has changed, this may include reference ranges. ALKALINE PHOSPHATASE 2025-03-28 10:24 [facility] 130 iu/l As of December 2022 testing method has changed, this may include reference ranges. SODIUM 2025-03-28 10:24 [facility] 137 mmol/l (missing) AST ASPARTATE AMINOTRANSFERASE 2025-03-28 10:24 [facility] 16 iu/l As of December 2022 testing method has changed, this may include reference ranges. ALT ALANINE AMINOTRANSFERASE 2025-03-28 10:24 [facility] 16 iu/l As of December 2022 testing method has changed, this may include reference ranges. CARBON DIOXIDE - CO2 2025-03-28 10:24 [facility] 25 mmol/l As of December 2022 testing method has changed, this may include reference ranges. GLOBULIN 2025-03-28 10:24 [facility] 3.0 g/dl (missing) ALBUMIN 2025-03-28 10:24 [facility] 3.3 g/dl As of December 2022 testing method has changed, this may include reference ranges. POTASSIUM 2025-03-28 10:24 [facility] 3.6 mmol/l As of December 2022 testing method has changed, this may include reference ranges. BUN - BLOOD UREA NITROGEN 2025-03-28 10:24 [facility] 5 mg/dl As of Dec testing method has changed, this may include reference ranges. TOTAL PROTEIN 2025-03-28 10:24 [facility] 6.3 g/dl As of December 2022 testing method has changed, this may include reference ranges. BILE ACIDS 2025-03-28 10:24 [facility] 6.7 umol/l Performed at: - [facility] [address] [address], [place], [place] [id number] Graduate Fellow: Elia Infante MD, Phone: [phone] ANION GAP 2025-03-28 10:24 [facility] 7.0 (missing ) (missing) GLUCOSE 2025-03-28 10:24 [facility] 83 mg/dl As of December 2022 testing method has changed, this may include reference ranges. CALCIUM 2025-03-28 10:24 [facility] 9.1 mg/dl As of December 2022 testing method has changed, this may include reference ranges. GFR - MDRD 2025-03-28 10:24 [facility] 94 (jared garcía) The IDMS-traceable MDRD Study Equation has been validated extensively in and populations between the ages of 18 and 70 with impaired kidney function (eGFR < 60 mL/min/1.73m2) and has shown good performance for patients with all common causes of kidney disease. Although this equation has not been validated for patients older than 70, an MDRD-derived eGFR may still be a useful tool for providers caring for patients older than 70. References: http://www.nkdep. nih.gov/lab-evalu ation/gfr/creatin ine-stand ardization, last updated August 2011. Result panel 3 CUL,GBS SCREEN 2025-04-02 [facility] CULTURE IN PROGRESS. RESULTS TO FOLLOW. (missing) (missing) GBSPCR,REFLEX IF PEN ALLERGIC 2025-04-02 [facility] POSITIVE (missing) (missing) Result panel 4 PROTEIN/CREATININE RATIO,URINE 2025-04-02 15:00 [facility] 0.2 (missing) (missing) TOTAL PROTEIN,URINE TIMED 2025-04-02 15:00 [facility] 12 mg/dl As of December 2022 testing method has changed, this may include reference ranges. CREATININE,URINE 2025-04-02 15:00 [facility] 77.4 mg/dl As of December 2022 testing method has changed, this may include reference ranges. Result panel 5 BILIRUBIN,TOTAL 2025-04-02 15:02 [facility] 0.3 mg/dl As of December 2022 testing method has changed, this may include reference ranges. CREATININE 2025-04-02 15:02 [facility] 0.7 mg/dl As of December 2022 testing method has changed, this may include reference ranges. ALBUMIN/GLOBULIN RATIO 2025-04-02 15:02 [facility] 1.1 (missing) (missing) CHLORIDE 2025-04-02 15:02 [facility] 106 mmol/l As of December 2022 testing method has changed, this may include reference ranges. HGB - HEMOGLOBIN 2025-04-02 15:02 [facility] 11.9 g/dl (missing) RED CELL DISTRIBUTION WIDTH 2025-04-02 15:02 [facility] 13.0 % (missing) SODIUM 2025-04-02 15:02 [facility] 137 mmol/l (missing) ALKALINE PHOSPHATASE 2025-04-02 15:02 [facility] 144 iu/l As of December 2022 testing method has changed, this may include reference ranges. ALT ALANINE AMINOTRANSFERASE 2025-04-02 15:02 [facility] 15 iu/l As of December 2022 testing method has changed, this may include reference ranges. AST ASPARTATE AMINOTRANSFERASE 2025-04-02 15:02 [facility] 18 iu/l As of December 2022 testing method has changed, this may include reference ranges. CARBON DIOXIDE - CO2 2025-04-02 15:02 [facility] 25 mmol/l As of December 2022 testing method has changed, this may include reference ranges. MEAN CORPUSCULAR HEMOGLOBIN 2025-04-02 15:02 [facility] 27.0 pg (missing) PLT - PLATELET COUNT 2025-04-02 15:02 [facility] 280 10 3/ul (missing) GLOBULIN 2025-04-02 15:02 [facility] 3.0 g/dl (missing) ALBUMIN 2025-04-02 15:02 [facility] 3.3 g/dl As of December 2022 testing method has changed, this may include reference ranges. POTASSIUM 2025-04-02 15:02 [facility] 3.5 mmol/l As of December 2022 testing method has changed, this may include reference ranges. MEAN CORPUSCULAR HGB CONC 2025-04-02 15:02 [facility] 32.2 g/dl (missing) HCT - HEMATOCRIT 2025-04-02 15:02 [facility] 36.9 % (missing) RED BLOOD COUNT 2025-04-02 15:02 [facility] 4.41 10 6/ul (missing) ANION GAP 2025-04-02 15:02 [facility] 6.0 (missing) (missing) TOTAL PROTEIN 2025-04-02 15:02 [facility] 6.3 g/dl As of December 2022 testing method has changed, this may include reference ranges. BUN - BLOOD UREA NITROGEN 2025-04-02 15:02 [facility] 8 mg/dl As of December 2022 testing method has changed, this may include reference ranges. MEAN CORPUSCULAR VOLUME 2025-04-02 15:02 [facility] 83.7 fl (missing) GLUCOSE 2025-04-02 15:02 [facility] 89 mg/dl As of December 2022 testing method has changed, this may include reference ranges. CALCIUM 2025-04-02 15:02 [facility] 9.0 mg/dl As of December 2022 testing method has changed, this may include reference ranges. WHITE BLOOD COUNT 2025-04-02 15:02 [facility] 9.6 x10 3/ul (missing) MEAN PLATELET VOLUME 2025-04-02 15:02 [facility] 9.8 fl (missing) GFR - MDRD 2025-04-02 15:02 [facility] 94 (missing) The IDMS-traceable MDRD Study Equation has been validated extensively in and populations between the ages of 18 and 70 with impaired kidney function (eGFR < 60 mL/min/1.73m2) and has shown good performance for patients with all common causes of kidney disease. Although this equation has not been validated for patients older than 70, an MDRD-derived eGFR may still be a useful tool for providers caring for patients older than 70. References: http://www.nkdep. nih.gov/lab-evalu ation/gfr/creatin ine-stand ardization, last updated August 2011. Social History date description facility
[2025-04-05] MEDS ORDERED: CITRIC ACID/SODIUM CITRATE 15 ML UDC PO ONE (08:05)
[2025-04-05] MEDS ORDERED: ACETAMINOPHEN 500 MG TABLET PO ONE (08:05)
[2025-04-05] MEDS ORDERED: ceFAZolin (2G) 2 GM in SODIUM CHLORIDE 0.9% MINIBAG 100 ML IV ONE (08:33)
[2025-04-05] MEDS ORDERED: OXYTOCIN/SODIUM CHLORIDE 500 ML IV ONE (08:41)
[2025-04-05] MEDS: LACTATED RINGERS 1,000 ML IV SCH (08:45)
[2025-04-05 08:47] LABS: HCT - HEMATOCRIT 36.7 % (37.0-47.0); HGB - HEMOGLOBIN 11.8 g/dL (12.0-16.0); MEAN PLATELET VOLUME 10.1 fL (7.9-10.8); NRBC ABSOLUTE COUNT (AUTO) 0.00 x10^3/uL; NUCLEATED RED BLOOD CELLS AUTO 0.0 /100WBC; PLT - PLATELET COUNT 321 10^3/uL (130-450); RED CELL DISTRIBUTION WIDTH 12.9 % (12.0-15.0)
[2025-04-05 09:01] LABS: ALT ALANINE AMINOTRANSFERASE 14.0 IU/L (10-60); AST ASPARTATE AMINOTRANSFERASE 18.0 IU/L (10-42); BUN - BLOOD UREA NITROGEN 8.0 mg/dL (6-20); CARBON DIOXIDE - CO2 24.0 mmol/L (21-32); CREATININE 0.7 mg/dL (0.6-1.3); GFR - MDRD 94.0 (>89)
--- NOTE | 2025-04-05 09:26 | HISTORY & PHYSICAL EXAMINATION ---
Admit History Visit Reason Visit Reason: Other (Scheduled RCD for GHTN) : 2 Parity: 1 Care: positive [facility] Complications This : positive induced HTN Smoking Status: Never smoker Mother's Labs Mother's Blood Type: positive B Mother's RH: positive Negative GBS: positive Group B Strep Positive Rubella Status: positive Immune HPI Diagnosis/Indication for NST: Gestational Hypertension Current : Current EDU 04/25/25 Gestation 37 Weeks and 1 Days Para 1 Vital Signs Temperature 36.7 C 04/05/25 08:05 Respiratory Rate 17 04/05/25 08:05 Blood Pressure 142/98 H 04/05/25 08:35 O2 Saturation 97 04/05/25 08:05 NST Procedure NST Procedure: NST Procedure Start Date 04/05/25 Start Time 08:15 Stop Time 08:45 Vibroacoustic Stimulation Used No Patient States Movement Yes Results and Plan Findings/Impression: EFM: moderate variability, no decelerations, positive accelerations, 140s Meds/Allgy Home Medications Ambulatory Orders Medication Instructions Recorded Confirmed vits no.126-ferrous fum tab PO QDAY 09/11/24 04/04/25 28 mg iron-folic acid 800 mcg tablet (Classic ) ondansetron 4 mg disintegrating 4 mg PO Q6H #60 tabs 0 11/19/24 04/04/25 tablet aspirin 81 mg tablet 81 mg PO BID 01/01/25 thyroid (pork) 90 mg tablet See Rx Instructions .Route 01/03/25 04/04/25 ([place] Thyroid) .COMPLEX #30 tabs bupropion HCl 300 mg 24 hr tablet, 300 mg PO QAM #90 t abs 02/12/25 04/04/25 extended release (Wellbutrin XL) metformin 500 mg tablet 500 mg PO QDAY 02/19/2503/08 albuterol sulfate 90 mcg/actuation 2 puff inhalation Q 4H PRN 02/21/25 04/04/25 aerosol inhaler shortness of breath or wheez ing #8.5 grams Allergies Allergies Allergy/AdvReac Type Severity Reaction Status Date / Time No Known Drug Allergies Allergy Verified 04/04/25 10:45 PFSH Active Problems All Active Problems (Updated 04/05/25 @ 09:41 by Rachna Vasquez DO) 37 weeks gestation of (Acute) Maternal care for scar from previous delivery (Acute) Gestational hypertension (Acute) Elevated blood pressure reading without diagnosis of hypertension (Acute) Encounter to establish care with new provider (Acute) (Acute) Anxiety (Chronic) Asthma (Chronic) Hemorrhagic nasal discharge (Acute) Rh negative status during (Acute) Hypothyroid in , antepartum (Acute) History of PCOS (Acute) Supervision of elderly multigravida (Acute) Mass of soft tissue of lower extremity (Acute) Mass of right thigh (Acute) Medical History Medical History (Updated 04/05/25 @ 09:41 by Rachna Vasquez DO) Hypothyroid Depression with anxiety (02/15/23) Sleep apnea treated with continuous positive airway pressure (CPAP) Obesity (02/11/23) Polycystic ovarian syndrome (02/11/23) Insulin resistance (02/11/23) Hirsutism (02/11/23) Constipation (07/07/23) Fatigue (07/07/23) De Quervain's tenosynovitis (02/15/23) Surgical History Surgical History (Updated 04/13/24 @ 12:26 by Martina Souza DO) History of laparoscopic cholecystectomy (~04/13/24) H/O nasal septoplasty delivery delivered Family History Family History (Updated 03/15/24 @ 15:37 by Paulette Porter MA) Father High blood pressure Grandfather Cancer Grandmother Cancer Social History Social History (Updated 02/19/25 @ 11:19 by Carley Jenkins MA) Smoking Status: Never smoker Do you dip or chew tobacco?: No Do you feel safe in your home environment?: Yes History of physical, verbal, emotional, or financial abuse?: No ETOH Use: None Frequency: Occasional ETOH - Additional Notes: 1-2 times per month POLST Patient has POLST: No Review of Systems Status of ROS: 10 or more systems reviewed and unremarkable except as noted in history and below and See HPI Physical Abdominal Exam Vital Signs: Temp Resp BP Pulse Ox 36.7 C 17 142/98 H 97 04/05/25 08:05 04/05/25 08:05 04/05/25 08:35 04/05/25 08:05 Contraction Intensity: positive Mild Uterine Resting Tone: positive Soft Monitoring Heart Rate Baseline: 140 Strip Review: positive Category I Presentation Presentation: positive Vertex (placenta posterior, EFW 3400g) Vaginal Exam Membranes: positive Membranes intact Plan for Labor Plan For Labor I expect patient to be DC'd or transferred within 96 hours.: Yes Conclusion/Plan Problem List (1) Gestational hypertension: Qualifiers: Trimester: third trimester Qualified Code(s): O13.3 - Gestational [-induced] hypertension without significant proteinuria, third trimester (2) Maternal care for scar from previous delivery: Qualifiers: Previous scar type: low transverse Qualified Code(s): O34.211 - Maternal care for low transverse scar from previous delivery (3) 37 weeks gestation of : Plan 39yo at 37.1w by IUI/first trimester US with GHTN, prior CD - Repeat CD today - Monitor BP, evaluate need for medication post op Lab Results 04/05/25 08:20 04/05/25 08:20
[2025-04-05] MEDS ORDERED: METHYLERGONOVINE 0.2 MG/ML VIAL ONE (09:45)
[2025-04-05] MEDS ORDERED: CARBOPROST TROMETHAMINE 250 MCG/ML VIAL IM ONE (09:45)
[2025-04-05] MEDS ORDERED: PHENYLEPHRINE 10 MG/ML VIAL ONE (09:45)
[2025-04-05] MEDS ORDERED: fentaNYL 100 MCG/2 ML VIAL ONE (09:57)
[2025-04-05] MEDS ORDERED: MORPHINE PF 5 MG/10 ML VIAL ONE (09:57)
[2025-04-05] MEDS ORDERED: NALOXONE 0.4 MG/ML VIAL IVP PRN ×3 (10:01→14:14)
[2025-04-05] MEDS ORDERED: MORPHINE 2 MG/ML CARPUJECT IVP PRN (10:01)
[2025-04-05] MEDS ORDERED: HYDROmorphone 0.5 MG/0.5 ML SYRINGE IVP PRN (10:01)
[2025-04-05] MEDS ORDERED: ATROPINE ABBOJECT 1 MG/10 ML SYRINGE IVP PRN (10:01)
[2025-04-05] MEDS ORDERED: ONDANSETRON 4 MG/2 ML VIAL IVP PRN ×2 (10:01→14:14)
[2025-04-05] MEDS ORDERED: fentaNYL 100 MCG/2 ML VIAL IVP PRN (10:01)
--- NOTE | 2025-04-05 10:01 | ANESTHESIA PROCEDURE NOTE ---
Pre-Anesthesia VS, & Labs Diagnosis Surgical Diagnosis:: Gestational hypertension, previous c/s Procedure Procedure: repeat c/s Vitals Vital Signs: Temp Resp BP Pulse Ox 36.7 C 17 142/98 H 97 04/05/25 08:05 04/05/25 08:05 04/05/25 08:35 04/05/25 08:05 NPO NPO: >8 hours Is Patient ?: Yes Lab Results Current Lab Results: Laboratory Tests 04/05/25 08:20: WBC 9.5, RBC 4.43, Hgb 11.8 L, Hct 36.7 L, MCV 82.8, MCH 26.6 L, MCHC 32.2, RDW 12.9, Plt Count 321, MPV 10.1, Neut # (Auto) 6.5, Lymph # (Auto) 1.8, Winston # (Auto) 0.8, Eos # (Auto) 0.3, Baso # (Auto) 0.0, Absolute Nucleated RBC 0.00, Nucleated RBC % 0.0, Sodium 136, Potassium 3.5, Chloride 104, Carbon Dioxide 24, Anion Gap 8.0, BUN 8, Creatinine 0.7, Estimated GFR (MDRD) 94, Glucose 89, Calcium 8.7, Total Bilirubin 0.4, AST 18, ALT 14, Alkaline Phosphatase 161 H, Total Protein 6.4, Albumin 3.3, Globulin 3.1, Albumin/Globulin Ratio 1.1 Lab results reviewed: Yes 04/05/25 08:20 04/05/25 08:20 Meds/Allgy Home Medications Ambulatory Orders Medication Instructions Recorded Confirmed vits no.126-ferrous fum tab PO QDAY 09/11/24 04/04/25 28 mg iron-folic acid 800 mcg tablet (Classic ) ondansetron 4 mg disintegrating 4 mg PO Q6H #60 tabs 0 11/19/24 04/04/25 tablet aspirin 81 mg tablet 81 mg PO BID 01/01/25 thyroid (pork) 90 mg tablet See Rx Instructions .Route 01/03/25 04/04/25 ([place] Thyroid) .COMPLEX #30 tabs bupropion HCl 300 mg 24 hr tablet, 300 mg PO QAM #90 t abs 02/12/25 04/04/25 extended release (Wellbutrin XL) metformin 500 mg tablet 500 mg PO QDAY 02/19/2503/08 albuterol sulfate 90 mcg/actuation 2 puff inhalation Q 4H PRN 02/21/25 04/04/25 aerosol inhaler shortness of breath or wheez ing #8.5 grams Allergies Allergies Allergy/AdvReac Type Severity Reaction Status Date / Time No Known Drug Allergies Allergy Verified 04/04/25 10:45 PFSH Active Problems All Active Problems 37 weeks gestation of (Acute) Maternal care for scar from previous delivery (Acute) Gestational hypertension (Acute) Elevated blood pressure reading without diagnosis of hypertension (Acute) Encounter to establish care with new provider (Acute) (Acute) Anxiety (Chronic) Asthma (Chronic) Hemorrhagic nasal discharge (Acute) Rh negative status during (Acute) Hypothyroid in , antepartum (Acute) History of PCOS (Acute) Supervision of elderly multigravida (Acute) Mass of soft tissue of lower extremity (Acute) Mass of right thigh (Acute) Medical History Medical History Hypothyroid Depression with anxiety (02/15/23) Sleep apnea treated with continuous positive airway pressure (CPAP) Obesity (02/11/23) Polycystic ovarian syndrome (02/11/23) Insulin resistance (02/11/23) Hirsutism (02/11/23) Constipation (07/07/23) Fatigue (07/07/23) De Quervain's tenosynovitis (02/15/23) Surgical History Surgical History History of laparoscopic cholecystectomy (~04/13/24) H/O nasal septoplasty delivery delivered Family History Family History (Updated 03/15/24 @ 15:37 by Paulette Porter MA) Father High blood pressure Grandfather Cancer Grandmother Cancer Social History Social History (Updated 02/19/25 @ 11:19 by Carley Jenkins MA) Smoking Status: Never smoker Do you dip or chew tobacco?: No Do you feel safe in your home environment?: Yes History of physical, verbal, emotional, or financial abuse?: No ETOH Use: None Frequency: Occasional ETOH - Additional Notes: 1-2 times per month POLST Patient has POLST: No POLST CPR Status: Attempt Resuscitation (CPR) Level of Medical Intervention: Full Treatment Anesthesia Exam (Expanded) Exam General: Alert, Oriented x3 and Cooperative Dental: WNL Mouth Openin Fingerbreadth Neck Mobility: Normal Mallampati classification: III Thyromental Distance: 4-6 cm Exam Exam Vital Signs: Vital Signs x48h Temp Resp BP Pulse Ox 04/05/25 08:35 142/98 H 04/05/25 08:05 36.7 C 17 136/100 H 97 Plan Plan Anesthesia Type: Spinal Consent for Procedure(s) Verified and Reviewed: Yes Code Status: Attempt Resuscitation ASA Classification ASA classification: 2-Mild systemic disease Is this case an emergency?: No
[2025-04-05] MEDS ORDERED: MORPHINE PF 5 MG/10 ML VIAL IT ONE (10:20)
[2025-04-05] MEDS ORDERED: fentaNYL 100 MCG/2 ML VIAL IT ONE (10:20)
[2025-04-05] MEDS ORDERED: ONDANSETRON 4 MG/2 ML VIAL ONE (10:26)
[2025-04-05] MEDS ORDERED: SODIUM CHLORIDE 0.9% 10 ML VIAL ONE (10:26)
[2025-04-05] MEDS: OXYTOCIN/SODIUM CHLORIDE 500 ML IV PRN (11:00)
[2025-04-05] MEDS ORDERED: LACTATED RINGERS 1,000 ML IV SCH (11:00)
[2025-04-05] MEDS ORDERED: GLYCOPYRROLATE 1 MG/5 ML VIAL ONE (11:21)
[2025-04-05] MEDS ORDERED: KETOROLAC 30 MG/ML VIAL ONE (11:26)
[2025-04-05] MEDS ORDERED: LABETALOL 20 MG/4 ML SYRINGE IVP PRN ×3 (11:54)
[2025-04-05] MEDS ORDERED: hydrALAZINE INJ 20 MG/ML VIAL IVP PRN ×2 (11:54)
[2025-04-05] MEDS ORDERED: oxyCODONE 5 MG TABLET PO PRN (11:54)
--- NOTE | 2025-04-05 12:27 | OPERATIVE REPORT ---
Operative Report General Admit Date: 04/05/25 Procedure Data: Operation Date: 04/05/25 10:00 Proposed Procedures p Section(Not Applicable) - Rachna Powell DO Pedro Actual Procedures p Section(Not Applicable) - Rachna Powell DO Pedro Pre-Op Diagnosis: PREVIOUS SECTION Anesthesia Type Spinal Case Staff Anesthesia Provider: Toshia Hill Assisting Provider: Waleska Stuart Times Into Recovery: 04/05/25 11:48 Procedure Start: 04/05/25 10:37 Procedure End: 04/05/25 11:40 Time out: 04/05/25 10:36 Pre-Op Diagnosis: 39yo with IUP 37.1w, gestational hypertension Post Op Diagnosis: 39yo with IUP 37.1w, gestational hypertension Procedure Note Estimated Blood Loss (ml): 800 Indications: Program Specialist Waleska Stuart CNM required for retraction and safe completion of delivery and procedures Findings: Normal appearing uterus, tubes, ovaries Viable male Other Other Information/Narrative: Under spinal anaesthetic with a mendoza catheter inserted, the patient was prepped and draped in the usual sterile fashion in the supine position with a leftward tilt. A Pfannensteil incision was made. The incision was carried down to the fascia with sharp dissection and cautery. The fascia was incised transversely and dissected off the rectus muscle using blunt and sharp dissection. Electrocautery was used for hemostasis. The peritoneum was opened taking care not to injure the bladder. Small amount of adhesions of omentum to muscle/peritoneum noted. The vesicouterine peritoneum was dissected off the lower uterine segment. The lower segment was assessed and a low transverse incision was made. The uterine incision was extended bluntly. The fetus was presenting as a vertex. The head was not easily brought up to the incision due to deep pelvis. Vacuum applied to flexion point and was delivered, no detachments, and the rest of the body followed easily. After one minute of delayed cord clamping, the cord was clamped twice and cut and the baby transferred to the warmer, awaiting the pediatric staff. Cord blood was obtained. The placenta was then delivered with assistance. The uterus was explored and was empty of all tissue. The uterus was exteriorized for better visualization. The uterine incision was then closed in one locking layer with 0- Monocryl suture. One [id number] suture placed right apex for good hemostasis. Tubes and ovaries were examined and appeared normal. The fascia was closed with 0-Vicryl in a running unlocked fashion. Subcutaneous layer reapproximated with 3-0 chromic. The skin was then reapproximated with 3-0 Monocryl. At the end of the procedure all sponges, instruments, and sharps were counted and correct. Estimated blood loss was 800cc. The patient and baby were taken to the recovery in stable condition.
[2025-04-05] MEDS ORDERED: METOCLOPRAMIDE 10 MG/2 ML VIAL ONE (13:58)
[2025-04-05] MEDS: METOCLOPRAMIDE 10 MG/2 ML VIAL IVP PRN (14:01)
[2025-04-05] MEDS ORDERED: NALBUPHINE 10 MG/ML AMP IVP PRN (14:14)
--- NOTE | 2025-04-05 15:31 | ANESTHESIA POST OP EVALUATION ---
Anesthesia Post Eval Post Anesthesia Eval Vitals: Last Vital Signs Temp 36.3 C L 04/05/25 13:42 Pulse 102 H 04/05/25 15:07 Resp 16 04/05/25 15:07 BP 145/85 H 04/05/25 15:07 Pulse Ox 98 04/05/25 13:42 CV Function Including HR & BP: Stable Pain Control: Satisfactory Nausea & Vomiting: Negative Mental Status: Baseline Respiratory Status: Airway Patent Hydration Status: Satisfactory Anesthesia Complications: None
[2025-04-05] MEDS: KETOROLAC 30 MG/ML VIAL IVP SCH (18:45)
[2025-04-05] MEDS: DOCUSATE SODIUM 100 MG CAPSULE PO SCH (22:38)
[2025-04-06] MEDS: ACETAMINOPHEN 500 MG TABLET PO SCH (02:31)
[2025-04-06 06:37] LABS: HCT - HEMATOCRIT 33.1 % (37.0-47.0); HGB - HEMOGLOBIN 10.4 g/dL (12.0-16.0); MEAN PLATELET VOLUME 9.9 fL (7.9-10.8); PLT - PLATELET COUNT 275.0 10^3/uL (130-450); RED CELL DISTRIBUTION WIDTH 13.0 % (12.0-15.0)
[2025-04-06] MEDS ORDERED: IBUPROFEN 600 MG TABLET ONE (10:54)
[2025-04-06] MEDS: IBUPROFEN 600 MG TABLET PO SCH (11:08)
[2025-04-06] MEDS: RHO(D) IMMUNE GLOBULIN 300 MCG SYRINGE IVP ONE (16:21)
[2025-04-06 21:22] LABS: HCT - HEMATOCRIT 30.8 % (37.0-47.0); HGB - HEMOGLOBIN 9.8 g/dL (12.0-16.0); MEAN PLATELET VOLUME 9.6 fL (7.9-10.8); PLT - PLATELET COUNT 293.0 10^3/uL (130-450); RED CELL DISTRIBUTION WIDTH 13.2 % (12.0-15.0)
[2025-04-06 21:36] LABS: ALT ALANINE AMINOTRANSFERASE 10.0 IU/L (10-60); AST ASPARTATE AMINOTRANSFERASE 15.0 IU/L (10-42); BUN - BLOOD UREA NITROGEN 9.0 mg/dL (6-20); CARBON DIOXIDE - CO2 25.0 mmol/L (21-32); CREATININE 0.7 mg/dL (0.6-1.3); GFR - MDRD 94.0 (>89)
[2025-04-06] MEDS: FAMOTIDINE 20 MG TABLET PO SCH (21:50)
--- NOTE | 2025-04-06 21:52 | PROVIDER PROGRESS NOTE ---
Subjective Prog Note Date Prog Note Date: 04/06/25 Prog Note Time: 21:48 Subjective Subjective: Patient feels quite well. No headache. no swelling. urinating well. passing gas. walking without issue. asked for pepcid tonight. Not suprised that her bp is a bit high because of her history but feels fine. Current Medications Current Medications Current Medications: Current Medications Generic Name Dose Route Start Last Admin Trade Name Freq PRN Reason Stop Dose Admin Acetaminophen 1,000 mg 04/05/25 12:00 04/06/25 19:06 Acetaminophen 500 Mg Tablet PO Not Given Q8H LATOSHA Docusate Sodium 200 mg 04/05/25 21:00 04/06/25 20:56 Docusate Sodium 100 Mg Capsule PO 200 mg BID LATOSHA Administration Famotidine 20 mg 04/06/25 22:00 Famotidine 20 Mg Tablet PO BID LATOSHA Hydralazine HCl 10 mg 04/05/25 11:54 Hydralazine Inj 20 Mg/Ml Vial IVP .ONCE PRN SBP> or= 160 OR DBP> or= 110 Protocol Hydralazine HCl 5 - 20 mg 04/05/25 11:54 Hydralazine Inj 20 Mg/Ml Vial IVP Q20M PRN SBP> or= 160 OR DBP> or= 110 Protocol Lactated Ringer's 1,000 mls @ 125 mls/hr 04/05/25 09:00 04/05/25 21:08 Lr IV Infused .Q8H LATOSHA Infusion Oxytocin/Sodium Chloride 500 mls @ 999 mls/hr 04/05/25 11:54 04/05/25 11:31 Pitocin/Sodium Chloride IV Infused PRN PRN Titration POST- HEMORR PREVENTION Protocol 999 MILLIUNIT/MIN Ibuprofen 600 mg 04/06/25 12:00 04/06/25 18:50 Ibuprofen 600 Mg Tablet PO 600 mg Q6HR LATOSHA Administration Labetalol HCl 20 - 40 mg 04/05/25 11:54 Labetalol 20 Mg/4 Ml Syringe IVP Q10M PRN SBP> or= 160 OR DBP> or= 110 Protocol Labetalol HCl 20 mg 04/05/25 11:54 Labetalol 20 Mg/4 Ml Syringe IVP .ONCE PRN SBP> or= 160 OR DBP> or= 110 Protocol Labetalol HCl 20 - 80 mg 04/05/25 11:54 Labetalol 20 Mg/4 Ml Syringe IVP Q10M PRN SBP> or= 160 OR DBP> or= 110 Protocol Metoclopramide HCl 5 mg 04/05/25 13:56 04/05/25 14:01 Metoclopramide 10 Mg/2 Ml Vial IVP 5 mg Q6HR PRN Administration Nausea / Vomiting Naloxone HCl 0.4 mg 04/05/25 11:54 Naloxone 0.4 Mg/Ml Vial IVP .ONCE PRN Opioid overdose Nifedipine 10 - 20 mg 04/05/25 11:54 Nifedipine 10 Mg Capsule PO Q20M PRN SBP> or= 160 OR DBP> or= 110 Protocol Oxycodone HCl 5 mg 04/05/25 11:54 Oxycodone 5 Mg Tablet PO Q6H PRN Severe Pain 6 -10 Objective Vital Signs/Intake & Output Reviewed Vital Signs: Yes Vital Signs: Vital Signs x48h Temp Pulse Resp BP 04/06/25 21:45 129/89 04/06/25 21:00 36.8 C 78 17 145/88 H 04/06/25 16:20 36.5 C 97 14 131/85 H Intake & Output: Intake & Output 04/03/25 04/04/25 04/05/25 04/06/25 23:59 23:59 23:59 23:59 Intake Total 5338 / 5338 480 / 480 Output Total 200 / 200 3625 / 3625 Balance 5138 / 5138 -3145 / -3145 Weight (kg) 286 lb 5.735 oz Objective General Appearance: positive No acute distress and Alert Respiratory: positive No respiratory distress Cardiovascular: positive Regular rate & rhythm Skin: positive Color nml Extremities: positive No pedal edema Neurologic/Psychiatric: positive Oriented x3 and Mood/affect nml Lab Results 04/06/25 21:12 04/06/25 21:12 Other Labs: Lab Results x24hrs 04/06/25 04/06/25 04/06/25 Range/Units 21:12 10:12 06:15 WBC 8.8 9.5 (4.8-10.8) x10^3/uL RBC 3.65 L 3.93 L (4.20-5.40) 10^6/uL Hgb 9.8 L 10.4 L (12.0-16.0) g/dL Hct 30.8 L 33.1 L (37.0-47.0) % MCV 84.4 84.2 (81.0-99.0) fL MCH 26.8 L 26.5 L (27.0-31.0) pg MCHC 31.8 L 31.4 L (32.0-36.0) g/dL RDW 13.2 13.0 (12.0-15.0) % Plt Count 293 275 (130-450) 10^3/uL MPV 9.6 9.9 (7.9-10.8) fL Sodium 137 (135-145) mmol/L Potassium 3.7 (3.5-4.5) mmol/L Chloride 107 (101-111) mmol/L Carbon Dioxide 25 (21-32) mmol/L Anion Gap 5.0 L (6-13) BUN 9 (6-20) mg/dL Creatinine 0.7 (0.6-1.3) mg/dL Estimated GFR (MDRD) 94 (>89) Glucose 104 (74-104) mg/dL Calcium 8.8 (8.5-10.3) mg/dL Total Bilirubin 0.2 (0.2-1.0) mg/dL AST 15 (10-42) IU/L ALT 10 (10-60) IU/L Alkaline Phosphatase 119 (42-121) IU/L Total Protein 5.5 L (6.4-8.9) g/dL Albumin 2.8 L (3.2-5.5) g/dL Globulin 2.7 (2.1-4.2) g/dL Albumin/Globulin Ratio 1.0 (1.0-2.2) Blood Type B NEGATIVE Weak D (Du) WEAK-D NEGATIVE Maternal Bleed NEGATIVE (NEGATIVE) Assessment/Plan Problem List (1) care following delivery: Impression: doing well. no concerns regarding routine post op issues. continued ambulation encouraged. except as below (2) Gestational hypertension: Impression: bp is likely up for extravascular fluid entering the vascular space, hemodilution is evidenced by her significant decrease hematocrit and total protein/albumin since this am. Even though she has urinated 3.6 liters. She must of had a huge extravascular fluid volume. I assume she will keep diuresing and normalize this in the next few days. If bp is still up in am, will give her some lasix for further get rid of this excess fluid she must have. Qualifiers: Trimester: third trimester Qualified Code(s): O13.3 - Gestational [-induced] hypertension without significant proteinuria, third trimester
[2025-04-07] MEDS: MAGNESIUM OXIDE 400 MG TABLET PO SCH (03:05)
[2025-04-07 07:29] VITALS: O2SAT 98
[2025-04-07 10:13] LABS: HCT - HEMATOCRIT 36.2 % (37.0-47.0); HGB - HEMOGLOBIN 11.0 g/dL (12.0-16.0); MEAN PLATELET VOLUME 9.8 fL (7.9-10.8); PLT - PLATELET COUNT 326.0 10^3/uL (130-450); RED CELL DISTRIBUTION WIDTH 13.2 % (12.0-15.0)
[2025-04-07] MEDS: NIFEdipine ER 30 MG TABLET PO SCH (10:24)
[2025-04-07 10:31] LABS: ALT ALANINE AMINOTRANSFERASE 11.0 IU/L (10-60); AST ASPARTATE AMINOTRANSFERASE 16.0 IU/L (10-42); BUN - BLOOD UREA NITROGEN 7.0 mg/dL (6-20); CARBON DIOXIDE - CO2 26.0 mmol/L (21-32); CREATININE 0.7 mg/dL (0.6-1.3); GFR - MDRD 94.0 (>89)
--- NOTE | 2025-04-07 11:01 | Discharge Summary ---
"Discharge Summary Admit Date: 04/05/25 Discharge Date: 04/07/25 Discharging Provider: Haylie Johnson MD Code Status: Attempt Resuscitation DIAGNOSES Admission Diagnoses: 37 weeks , prior c section, gestational hypertension, AMA Discharge Diagnoses with Status of Each Condition: term delivered. post hypertension started on nifedipine. HPI History of Present Illness: admitted for repeat c section. At 37 weeks due to gestational hypertension. Patient has PCOS and has been on metformin 500 mg bid during . Also on [place] Thyroid daily. CONSULTS | PROCEDURES Procedures: Repeat c section performed without complication HOSPITAL COURSE Hospital Course: Patient admitted for c section. Performed without complication by Dr. Vasquez. Post op course was remarkable for significant fluid shifts and then mild hypertension. First 36 hrs led to diuresis of 3.6 liters of fluid. Bps remained elevated overnight so PPD#2 nifedipine was started. labs were not indicative of preeclampsia. She struggles with after her first baby and we discussed ways to improve milk supply, possible use of reglan. [employer] use to make a handout which I emailed her about nonpharmacologic data including acupuncture and then also reglan. Also discussed metformin. She can take or not, just do what feels best and gives best milk in the short term. time spent 60 min. ALLERGIES Allergies Allergy/AdvReac Type Severity Reaction Status Date / Time No Known Drug Allergies Allergy Verified 04/04/25 10:45 MEDICATIONS Ambulatory Orders Medication Instructions Recorded Confirmed vits no.126-ferrous fum 1 tab PO DAILY 04/05/25 28 mg iron-folic acid 800 mcg tablet (Classic ) ondansetron 4 mg disintegrating 4 mg PO Q6H #60 tabs 0 11/19/24 04/05/25 tablet albuterol sulfate 90 mcg/actuation 2 puff inhalation Q 4H PRN 02/21/25 04/05/25 aerosol inhaler shortness of breath or wheez ing #8.5 grams bupropion HCl 300 mg 24 hr tablet, 300 mg PO DAILY 04/05/25 extended release (Wellbutrin XL) thyroid (pork) 90 mg tablet 90 mg PO DAILY 04/05/25 ([place] Thyroid) acetaminophen 325 mg capsule 325 - 650 mg (1 - 2 x 325 mg) PO 04/07/25 Q4H PRN pain #60 caps ferric citrate 210 mg iron tablet 210 mg PO .QOD #30 t abs 04/07/25 (Auryxia) ibuprofen 600 mg tablet 600 mg PO Q6H PRN pain #30 t abs 04/07/25 nifedipine 30 mg tablet,extended 30 mg PO BID #120 tab s 04/07/25 release 24 hr (Procardia XL) PHYSICAL EXAM AT DISCHARGE Vital Signs: Vital Signs x48h Temp Pulse Resp BP Pulse Ox 04/07/25 07:28 88 16 137/95 H 98 04/07/25 04:57 36.7 C 79 16 149/95 H General Appearance: positive No acute distress and Alert Respiratory: positive No respiratory distress Cardiovascular: positive Regular rate & rhythm Abdomen: positive Non-tender and Other (Prevena on the wound) Skin: positive Color nml and No rash LABS 04/07/25 10:08 04/07/25 10:08 Other Lab Results: ferritin and tsh are pending. FOLLOW UP Follow Up: Dr. Natarajan on Tuesday next week to remove drain, check wound. TIME SPENT Time Spent in Discharge (Minutes): 60 Discharge Plan Discharge Patient Disposition: Home, Self Care Prescriptions: Continued albuterol sulfate 90 mcg/actuation HFA aerosol inhaler 2 puff inhalation Q4H PRN (Reason: shortness of breath or wheezing) Qty: 8.5 2RF Rx Instructions: Inhale 2 puff using inhaler every four hours as needed nifedipine [Procardia XL] 30 mg tablet extended release 24hr 30 mg PO BID Qty: 120 2RF ibuprofen 600 mg tablet 600 mg PO Q6H PRN (Reason: pain) Qty: 30 1RF acetaminophen 325 mg capsule 325 - 650 mg PO Q4H PRN (Reason: pain) Qty: 60 1RF ferric citrate [Auryxia] 210 mg iron tablet 210 mg PO .QOD Qty: 30 2RF Rx Instructions: administer with a meal bupropion HCl [Wellbutrin XL] 300 mg tablet extended release 24 hr 300 mg PO DAILY thyroid (pork) [[place] Thyroid] 90 mg tablet 90 mg PO DAILY Rx Instructions: TAKE ONE (1) TABLET BY MOUTH EVERY DAY ondansetron 4 mg tablet,disintegrating 4 mg PO Q6H Qty: 60 1RF Classic 28 mg iron- 800 mcg tablet 1 tab PO DAILY Discontinued metformin 500 mg tablet 500 mg PO BID aspirin 81 mg tablet 81 mg PO BID Print Language: Japanese Patient Instructions: Feeding: First Year: Pediatric, After a Follow-up Care: Adolph Natarajan MD [Provider Admit Priv/Credential, Obstetrics/Gynecology] Vitals documented within 30 minutes of discharge?: Yes"
[2025-04-07 12:33] VITALS: BP 140/93; TEMP 98.4
--- NOTE | 2025-04-07 12:36 | Labor Flowsheet ---
Labor Flowsheet Datetime Report Generated by CPN: 04/07/2025 12:36 Datetime: 04/05/2025 13:14 VAGINAL EXAM Membranes Ruptured Date/Time: 04/05/2025 10:54 Membranes Rupture Method: Artificial Amniotic Fluid Color: Clear Amniotic Fluid Amount: Moderate Amniotic Fluid Odor: Normal
== END 2025-04-07 12:33 | disposition home or self-care (01) | DRG 788 ==
LOC: FBP 07:53
PROVIDERS: ADMIT Obstetrics & Gynecology; ATTEND Obstetrics & Gynecology
DX: O34.211 Maternal care for low transverse scar from previous cesarean delivery; Z79.899 Other long term (current) drug therapy; O99.284 Endocrine, nutritional and metabolic diseases complicating childbirth; E03.9 Hypothyroidism, unspecified; Z37.0 Single live birth; O13.5 Gestational [pregnancy-induced] hypertension without significant proteinuria, complicating the puerperium; E28.2 Polycystic ovarian syndrome; O99.824 Streptococcus B carrier state complicating childbirth; Z3A.37 37 weeks gestation of pregnancy